=== PATIENT | female | born 1965 | race Hispanic/Latino ===

== ENCOUNTER → 2020-02-02 | Outpatient (CLI) | payer OTHER ==
[~2020-02-02] VITALS: Ht 157.5 cm; Wt 59.9 kg
== END ==
LOC: DX 14:30 → EDSTATUS 02-07 08:00
PROVIDERS: ATTEND Internal Medicine Gastroenterology
DX: Z01.818 Encounter for other preprocedural examination (principal); Z12.11 Encounter for screening for malignant neoplasm of colon; Z11.59 Encounter for screening for other viral diseases
CPT/HCPCS: 93005; U0002

== ENCOUNTER 2020-02-21 20:57 | Emergency (ER) | payer OTHER ==
[~2020-02-21] VITALS: Ht 154.9 cm; Wt 60.8 kg
--- NOTE | 2020-02-21 21:38 | NUR ---
pt states that has instructions that state to remain npo past 1800 today for colonoscpy in am. written instructions reviewed, instructions do not state clear time to remain npo. dr karen andersen called to clarify. pt to remain npo p mn per md. pt informed of md instructions. pt verbalized understanding.
--- NOTE | 2020-02-21 21:39 | Emergency Department Note ---
History of Present Illnes History of Present Illness Chief Complaint: Abdominal Complaints History of Present Illness This is a 55 year old female Chief Complaint Comment 55 y/o female pt [id number] presents to ED with abdominal pain following bowel prep regimen for scheduled colonoscopy tomorrow at this facility by Dr. Charissa Arboleda Historian: Patient Arrival Mode: Car History limited by: language barrier Awning Hanger Helper Required: Yes Onset (how long ago): hour(s) Location: Abdomen Quality: cramping Radiation: Reports non-radiation Severity: moderate Onset quality: gradual Duration (how long): day(s) (1) Timing of current episode: sporadic Progression: worsening Chronicity: new Context: Denies recent illness, Denies recent surgery Relieving factors: none Exacerbating factors: none Associated symptoms: Reports denies other symptoms Treatments prior to arrival: none Past Medical/Family History Physician Review I have reviewed the patient's past medical and family history. Any updates have been documented here. Past Medical History Recent Fever: No Clinical Suspicion of Infectio: No New/Unexplained Change in Ment: No Past Surgical History: Cholecysctectomy, Hysterectomy, Social History Smoking Cessation: Never Smoker Counseling Performed: No Alcohol Use: None Any Illegal Drug Use: No Other Any Pre-Existing Lines (PICC,: No Review of Systems Review of Systems Constitutional: Reports no symptoms EENTM: Reports no symptoms Cardiovascular: Reports no symptoms Respiratory: Reports no symptoms Gastrointestinal: Reports as per HPI Genitourinary: Reports no symptoms Musculoskeletal: Reports no symptoms Integumentary: Reports no symptoms Neurological: Reports no symptoms Psychological: Reports no symptoms Endocrine: Reports no symptoms Hematological/Lymphatic: Reports no symptoms Physical Exam Related Data Allergies: Coded Allergies: No Known Allergies (Unverified , 02/01/20) Triage Vital Signs Vital Signs Date Time Temp Pulse Resp B/P (MAP) Pulse Ox O2 Delivery O2 Flow Rate FiO2 02/21/20 21:18 98.5 83 17 127/82 100 Room Air Vital signs reviewed: Yes Physical Exam CONSTITUTIONAL Constitutional: Present well-developed, Present well-nourished HENT HENT: Present normocephalic, Present atraumatic, Present oropharynx clear/moist, Present nose normal HENT L/R: Present left ext ear normal, Present right ext ear normal EYES Eyes: Reports PERRL, Reports conjunctivae normal NECK Neck: Present ROM normal PULMONARY Pulmonary: Present effort normal, Present breath sounds normal CARDIOVASCULAR Cardiovascular: Present regular rhythm, Present heart sounds normal, Present capillary refill normal, Present normal rate GASTROINTESTINAL Abdominal: Present soft, Present nontender, Present bowel sounds normal GENITOURINARY Genitourinary: Present exam deferred SKIN Skin: Present warm, Present dry MUSCULOSKELETAL Musculoskeletal: Present ROM normal NEUROLOGICAL Neurological: Present alert, Present oriented x 3, Present no gross motor or sensory deficits PSYCHOLOGICAL Psychological: Present mood/affect normal, Present judgement normal Assessment & Plan Medical Decision Making MDM 55 y.o F presents for abdominal cramping after taking a bowel prep. Per reviewing her instructions she appears to be taking he bowel prep incorrectly. Discussed this with Dr. Arboleda and recommendations made. Doubt emergent process at this time. I discussed results patient as well as expected disease time course and management. They will follow up with their primary care provider or return to the emergency department for new or worsening symptoms. Patient's appropriate for discharge. Reassessment Reassessment time: 21:38 Reassessment Well appearing, NAD Assessment & Plan Final Impression: (1) Abdominal cramping Depart Disposition: HOME, SELF-CARE Last Vital Signs Date Time Temp Pulse Resp B/P (MAP) Pulse Ox O2 Delivery O2 Flow Rate FiO2 02/21/20 21:18 98.5 83 17 127/82 100 Room Air Home Meds No Active Prescriptions or Reported Meds ZAACRIAS DAVID MD Feb 21, 2020 21:38
--- OUTSIDE RECORDS SUMMARY | 2020-02-22 19:51 | XMS REPORT | Continuity of Care Document ---
Author Author [facility] t Organization [facility] Address [address] [place] [address] Phone Unavailable Care Team Providers Care [place] Worker Name Role Phone Asked, Pcp No PCP Unavailable Matteo RN, Breann Attphys Unavailable Ced SAMSON, Kyle Moreland Attphys Mehul SAMSON, Renaldo Gama Attphys [phone] Brandon SAMSON, Josef Cadena Attphys [phone] Leonila SAMSON, Ryder Attphys Bhavin SAMSON, Dominick Barrios Attphys NIK CARVER Admphys Unavailable Payers Payer Name Policy Type Policy Number Effective Date Expiration Date Erica CAZARES [employer] [id number] 2019 -PresentExchange [id number] 2019 00:00:00 Felix Sifuentes Problems Condition Name Condition Details Condition Category Status Onset Date Resolution Date Last Treatment Date Treating Clinician Comments Source COVID-19 virus detected COVID-19 virus detected Disease Active 2019-11-19 00:00:[address] Post-traumatic headache Post-traumatic headache Disease Active 2019-11-18 00:00:[address] Type 2 diabetes mellitus without complication Type 2 d iabetes mellitus without complication Disease Active 2019-11-18 00:00:00 Felix Sifuentes Essential hypertension Essential hypertension Disease Active 2019-11-18 00:00:00 Felix vizcaino Syncope Syncope Disease Active 2019-11-17 00:00:00 Felix Sifuentes Allergies, Adverse Reactions, Alerts This patient has no known allergies or adverse reactions. Social History Social Habit Start Date Stop Date Quantity Comments Source Sex Assigned At [facility] Alcohol intake 2019-11-18 00:00:00 2019-11-18 00:00:00 Ex-drinker (fi nding) Felix Sifuentes Smoking Status Start Date Stop Date Source Never smoker Felix Worley t Medications Ordered Medication Name Filled Medication Name Start Date Stop Da te Current Medication? Ordering Clinician Indication Dosage Frequency Signature (SIG) Comments Components Source metFORMIN (GLUCOPHAGE) 500 mg tablet 2019-11-20 19:50:21 Ye s 500mg Q.5D Take 500 mg by mouth 2 (two) times a day with meals. Felix Sifuentes lisinopriL 10 mg tablet 1 tablet, hydroCHLOROthiazide 25 MG tablet 0.5 tablet 2019-11-20 19:50:21 Yes QD Take by mouth yvette Sifuentes ciprofloxacin (CIPRO) 500 MG tablet 2019-09-28 00:00:0 0 2019-10-05 23:59:00 No 500mg Q.5D Take 1 tablet ( 500 mg total) by mouth 2 (two) times a day for 7 days. Felix Sifuentes keTOROlac (TORadol) 10 mg tablet 2019-09-28 00:00:00 2019-09 23:59:00 No 10mg Q6H Take 1 tablet (10 mg total) by mouth every 6 (six) hours as needed for moderate pain for up to 5 days. Felix Sifuentes keTOROlac (TORadol) 10 mg tablet 2019-09-28 00:00:00 2019-09 00:00:00 No 10mg Q6H Take 1 tablet (10 mg total) by mouth every 6 (six) hours as needed for moderate pain for up to 5 days. Felix Sifuentes ciprofloxacin (CIPRO) 500 MG tablet 2019-09-28 00:00:0 0 2019-09-28 00:00:00 No 500mg Q.5D Take 1 tablet ( 500 mg total) by mouth 2 (two) times a day for 7 days. Felix Sifuentes Vital Signs Vital Name Observation Time Observation Value Comments Source Systolic blood pressure 2019-11-20 15:38:19 151 mm[Hg] Felix Sifuentes Diastolic blood pressure 2019-11-20 15:38:19 97 mm[Hg] Felix Sifuentes Heart rate 2019-11-20 15:38:19 87 /min Felix [facility] Body temperature 2019-11-20 15:38:19 36.39 Carmel Mohan ton [facility] Respiratory rate 2019-11-20 15:38:19 19 /min Moahn miranda [facility] Oxygen saturation in Arterial blood by Pulse oximetry 11-19 15:38:19 97 /min [place] [facility] Body height 2019-11-20 13:23:00 157.5 cm [place] [facility] Body weight 2019-11-20 13:23:00 61.8 kg [place] [facility] BMI 2019-11-20 13:23:00 24.92 kg/m2 [place] [facility] Procedures Procedure Date / Time Performed Performing Clinician [facility] e CT ANGIOGRAM PE CHEST 2019-11-20 14:40:13 Christiano Glez [place] [facility] POC GLUCOSE 2019-11-20 12:23:00 Tammi Taylor [facility] TTE COMPLETE, WO CONTRAST, W DOPPLER ([id number]) 2019-11-20 08:4 5:00 Nik Carver [facility] POC GLUCOSE 2019-11-20 08:35:00 Tammi Taylor [facility] CBC WITH PLATELET AND DIFFERENTIAL 2019-11-20 04:36:00 Renata Carver [facility]ism COMPREHENSIVE METABOLIC PANEL 2019-11-20 04:36:00 Nik Carver ESTIMATED GFR 2019-11-20 04:36:00 Nik Carver on [facility]ism POC GLUCOSE 2019-11-19 17:19:00 Nik Carver on [facility]ism POC GLUCOSE 2019-11-19 11:10:00 Nik Carver on [facility] MRI BRAIN WO CONTRAST 2019-11-19 10:58:51 Valentino Green [facility]ism POC GLUCOSE 2019-11-19 08:26:00 Nik Carver on [facility]ism POC GLUCOSE 2019-11-19 05:38:00 Nik Carver on [facility]ism CBC WITH PLATELET AND DIFFERENTIAL 2019-11-19 05:30:00 Renata Carver [facility]ism COMPREHENSIVE METABOLIC PANEL 2019-11-19 05:30:00 Nik Carver [facility] ESTIMATED GFR 2019-11-19 05:30:00 Nik Carver on [facility]ikhism POC GLUCOSE 2019-11-19 00:38:00 Nik Carver on [facility]ism EEG AWAKE/DROWSY LESS THAN 41 MIN 2019-11-18 22:25:07 Nik Carver [facility]ism POC GLUCOSE 2019-11-18 20:52:00 Nik Carver on [facility]ism POC GLUCOSE 2019-11-18 17:29:00 Nik Carver on [facility]ism LIPID PANEL 2019-11-18 15:40:00 Valentino Green [facility] THYROID STIMULATING HORMONE 2019-11-18 15:40:00 Valentino Green [facility] T4, FREE 2019-11-18 15:40:00 Valentino Green [facility]ism T3 2019-11-18 15:40:00 Valentino Green [facility] RACHEL 2019-11-18 15:40:00 Valentino Green [facility] VITAMIN B12 LEVEL 2019-11-18 15:40:00 Valentino Green [facility]ism FOLATE LEVEL 2019-11-18 15:40:00 Valentino Green [facility] SYPHILIS TOTAL ANTIBODY 2019-11-18 15:40:00 Valentino Green [facility] HIV AG/AB COMBINATION 2019-11-18 15:40:[address] [facility] HOMOCYSTINE, PLASMA 2019-11-18 15:40:00 Valentino Green [facility] RHEUMATOID FACTOR 2019-11-18 15:40:00 Valentino Green [facility]ism RACHEL TITER 2019-11-18 15:40:00 Nik Carver on Sikhism ECG 12-LEAD 2019-11-18 12:38:40 Nik Carver on Sikhism POC GLUCOSE 2019-11-18 12:03:00 Nik Carver on [facility]ikhism HC COMPLETE BLD COUNT W/AUTO DIFF 2019-11-18 10:45:00 Nik Carver COMPREHENSIVE METABOLIC PANEL 2019-11-18 10:45:00 Nik Carver Sikhism PROTHROMBIN TIME WITH INR 2019-11-18 10:45:00 Nik Carver [facility]ism PARTIAL THROMBOPLASTIN TIME (PTT) 2019-11-18 10:45:00 Nik Carverist B NATRIURETIC PEPTIDE 2019-11-18 10:45:00 Nik Carver Sikhism TROPONIN 2019-11-18 10:45:00 Nik Carver on Sikhism MYOGLOBIN 2019-11-18 10:45:00 MehulNik mistry on Sikhism PROCALCITONIN 2019-11-18 10:45:00 MehulNik mistry on Sikhism C-REACTIVE PROTEIN 2019-11-18 10:45:00 Nik Carver [facility]ism INTERLEUKIN 6 2019-11-18 10:45:00 Nik Carver on Sikhism FERRITIN LEVEL 2019-11-18 10:45:00 MehulNik mistry on Sikhism D-DIMER 2019-11-18 10:45:00 MehulNik mistry on Sikhism LDH 2019-11-18 10:45:00 MehulNik mistry on S[facility]ism TRIGLYCERIDES 2019-11-18 10:45:00 MehulNik mistry on [facility]ism FIBRINOGEN 2019-11-18 10:45:00 MehulNik mistry on [facility]ism ESTIMATED GFR 2019-11-18 10:45:00 Nik Carver on [facility]ism TYPE AND SCREEN 2019-11-18 10:45:00 MehulNik mistry on [facility]ism POC GLUCOSE 2019-11-18 07:30:00 Nik Carver on [facility]ism LACTIC ACID LEVEL, SEPSIS - NOW AND REPEAT 2X EVERY 3 HOURS 2019-11-18 02:57:00 Jacinta Herbert Sikhism TROPONIN 2019-11-18 02:57:00 Jacinta Herbert on [facility]ism HC COMPLETE BLD COUNT W/AUTO DIFF 2019-11-18 02:57:00 Nik Carver [facility]ism PROTHROMBIN TIME WITH INR 2019-11-18 02:57:00 Nik Carver [facility]ism PARTIAL THROMBOPLASTIN TIME (PTT) 2019-11-18 02:57:00 Nik Carver [facility]ism COMPREHENSIVE METABOLIC PANEL 2019-11-18 02:57:00 Nik Carver gee Felix Sifuentes HEMOGLOBIN A1C 2019-11-18 02:57:00 MehulNik mistry on Sikhism LIPASE LEVEL 2019-11-18 02:57:00 MehulNik mistry on Sikhism MAGNESIUM LEVEL 2019-11-18 02:57:00 MehulNik mistry on Sikhism PHOSPHORUS LEVEL 2019-11-18 02:57:00 MehulNik mistry S[facility]ism ESTIMATED GFR 2019-11-18 02:57:00 Nik Carver on Sikhism TROPONIN 2019-11-18 00:05:00 Jacinta Herbert on [facility]ism URINE CULTURE 2019-11-18 00:00:00 Jacinta Herbert on [facility]ikhism URINE DRUGS OF ABUSE SCREEN 2019-11-18 00:00:00 Jacinta Herbert URINALYSIS SCREEN AND MICROSCOPY, WITH REFLEX TO CULTURE 202 00:00:00 Jacinta Herbert ECG ED PRELIMINARY INTERPRETATION 2019-11-17 23:09:51 Jerome Coughlin LACTIC ACID LEVEL, SEPSIS - NOW AND REPEAT 2X EVERY 3 HOURS 2019-11-17 23:05:00 Jacinta Herbert LIPASE LEVEL 2019-11-17 23:05:[address] [facility] HEAD WO CONTRAST 2019-11-17 22:25:08 Jacinta Herbert COVID-19 QUALITATIVE PCR 2019-11-17 22:20:00 Jacinta Herbert [facility]ism ECG 12-LEAD 2019-11-17 20:55:31 Jacinta Herbert on [facility]ikhism HC COMPLETE BLD COUNT W/AUTO DIFF 2019-11-17 20:55:00 Capo Herbertist COMPREHENSIVE METABOLIC PANEL 2019-11-17 20:55:00 Luke Herbert LACTIC ACID LEVEL, SEPSIS - NOW AND REPEAT 2X EVERY 3 HOURS 2019-11-17 20:55:00 Jacinta Herbert TROPONIN 2019-11-17 20:55:00 Jacinta Herbert on Sikhism B NATRIURETIC PEPTIDE 2019-11-17 20:55:00 Jacinta Herbert CREATINE KINASE, TOTAL (CPK) 2019-11-17 20:55:00 Jacinta Herbert ALCOHOL LEVEL, BLOOD 2019-11-17 20:55:00 Jacinta Herbert PROTHROMBIN TIME WITH INR 2019-11-17 20:55:00 Jacinta Herbert PARTIAL THROMBOPLASTIN TIME (PTT) 2019-11-17 20:55:00 Capo Herbert ESTIMATED GFR 2019-11-17 20:55:00 Jacinta Herbert on Sikhism LIPASE LEVEL 2019-11-17 20:55:00 Jacinta Herbert on Sikhism XR CHEST 1 VW PORTABLE 2019-11-17 19:40:00 Jacinta Herbert ED REFERRAL [facility] 2019 22:20:[address] CHEST WO CONTRAST 2019-11-10 21:27:41 Ryder Keen ECG 12-LEAD 2019-11-10 21:24:58 Ryder Keen hodist HC COMPLETE BLD COUNT W/AUTO DIFF 2019-11-10 20:38:00 Erica Keen PROTHROMBIN TIME WITH INR 2019-11-10 20:38:00 Ryder Keen PARTIAL THROMBOPLASTIN TIME (PTT) 2019-11-10 20:38:00 Erica Keen COMPREHENSIVE METABOLIC PANEL 2019-11-10 20:38:00 Jen Keen TROPONIN 2019-11-10 20:38:00 LeonilaRyder [place] [facility] B NATRIURETIC PEPTIDE 2019-11-10 20:38:00 Ryder Keen on Sikhism ESTIMATED GFR 2019-11-10 20:38:00 LeonilaRyder Met hodist D-DIMER 2019-11-10 20:38:[address] ABDOMEN PELVIS WO CONTRAST 2019-09-28 18:51:53 Tu, Yen-Te Chr istian Felix Sifuentes URINE CULTURE 2019-09-28 17:40:00 Jay Fuchs Me thodist URINALYSIS SCREEN AND MICROSCOPY, WITH REFLEX TO CULTURE 202 17:40:00 Jay Fuchs HC COMPLETE BLD COUNT W/AUTO DIFF 2019-09-28 16:17:00 Ap Fuchs COMPREHENSIVE METABOLIC PANEL 2019-09-28 16:17:00 Jay Fuchs LIPASE LEVEL 2019-09-28 16:17:00 Jay Fuchs [facility] ESTIMATED GFR 2019-09-28 16:17:00 Jay Fuchs [facility] Plan of Care Planned Activity Planned Date Details Comments Source Future Scheduled Test 2019-11-18 00:00:00 INFLUENZA VACCINE [code = INFLUENZA VACCINE] [facility] Future Scheduled Test 2013 00:00:00 BREAST CANCER SCRE ENING [code = BREAST CANCER SCREENING] [facility] Future Scheduled Test 2013 00:00:00 COLONOSCOPY SCREEN ING [code = COLONOSCOPY SCREENING] [facility] Future Scheduled Test 2013 00:00:00 SHINGLES VACCINES (#1) [code = SHINGLES VACCINES (#1)] [facility] Future Scheduled Test 1984-01-05 00:00:00 Screening for robel gnant neoplasm of cervix (procedure) [code = 369328428] Felix Worley Future Scheduled Test 1973 00:00:00 DIABETES: RETINAL EYE EXAM [code = DIABETES: RETINAL EYE EXAM] [facility] Future Scheduled Test 1973 00:00:00 DIABETIC FOOT EXAM [code = DIABETIC FOOT EXAM] [facility] Future Scheduled Test 1973 00:00:00 URINE MICROALBUMIN [code = URINE MICROALBUMIN] Felix Sifuentes Encounters Start Date/Time End Date/Time Encounter Type Admission Type [facility] Care Department Encounter ID Source 2019-11-17 00:00:00 2019-11-20 00:00:00 Inpatient JAZMINE TAYLOR [facility] [id number] Felix Sifuentes 2019-11-10 00:00:00 2019-11-10 00:00:00 Emergency JEN KEEN [facility] [id number] Felix Sifuentes 2019-09-28 00:00:00 2019-09-28 00:00:00 Emergency EVERT BOLDEN [facility] Karla [id number] Felix Sifuentes Results Test Description Test Time Test Comments Results Result Comments Source SCR MAMM BILATERAL CAROLEE CAD DIGITAL 2020-01-10 09:51:15 - SCR MAMM BILATERAL CAROLEE CAD DIGITALBILATERAL DIGITAL SCREENING MAMMOGRAM 3D/2D WITH CAD: 01/09/2020CLINICAL: Asymptomatic. Digital breast tomosynthesis was performed in addition to routine CC and MLO views. Current mammographic images were evaluated by either a [employer] M-Vu or a [employer] ImageChecker CAD (computer aided detection system). Comparison is made to exams dated 10/23/2015 mammogram and mammogram - [facility]. There are scattered fibroglandular tissues in both breasts. No suspicious mass, architectural distortion, malignant type calcification, or lymph node abnormality detected. Breast architecture is stable compared to prior exams.IMPRESSION: NEGATIVEThere is no mammographic evidence of malignancy. Resume annual screening mammography in one year. Aiden Walls M.D. ss/penrad:01/10/2020 09:51:15 Roll Forming Machine Set Up Operator: Bee Mcdowell , [facility] sent: BIRADS 1-2 Normal Mammogram BI-RADS: 1 Negative Procalcitonin 2019-11-21 15:55:52 Test Item Procalcitonin (test code = 07237-5) <0.07 <=0.07 ng/mL INTERPRETIVE INFORMATION: ProcalcitoninProcalcitonin > 2.00 ng/mL: Procalcitonin levels above 2.00 ng/mL on the first day of ICU admission represent a high risk for progression to severe sepsis and/or septic shock.Procalcitonin < 0.50 ng/mL: Procalcitonin levels below 0.50 ng/mL on the first day of ICU admission represent a low risk for progression to severe sepsis and/or septic shock.If t he procalcitonin measurement is performed shortly after the systemic infection process has started (usually less than 6 hours), these values may still be low. As various non-infectious conditions are known to induce procalcitonin as well, procalcitonin levels between 0.5 ng/mL and 2.00 ng/mL should be reviewed carefully to take into account the specific clinical background and condition(s) of the individual patient.Performed By: Bel Vino at [address] [address]Zsledufmrd Director: Shreya Veronica DO, MPHPerformed by Bel [facility]ino, [address] [place] [id number] www.[facility], Antonio Neri MD - Lab. Director [facility]ist[facility] [id number] 13:37:25* Test Item Value Reference Range Interpretation Comments RACHEL titer (test code = 50367-0) 1:80 Not-Detected A RACHEL pattern (test code = 58475-6) Homogeneous Not-Detected A Lab Interpretation (test code = 89456-3) Abnormal [place] [id number] 13:35:12* Test Item Value Reference Range Interpretation Comments RACHEL screen (test code = 550) Positive Negative A Test performed using [employer] Lite DAPI RACHEL kit (Indirect Immunofluorescence Assay) for Anti-Nuclear Antibody on TwonqA-Lyser 160 Analyzer. Lab Interpretation (test code = 95225-6) Abnormal [place] [facility]CT Angiogram Pe [id number] 17:26:03Hm Interface, Radiology Results - 11/20/2019 5:29 PM CDTEXAMINATION: CT ANGIOGRAM PE CHESTCLINICAL HISTORY: PE suspected intermediate prob neg D-dimer, COVID 19.TECHNIQUE: PE PROTOCOL: CT angiographic images of the chest were obtained during intravenous administration of iodinated contrast. Computerized re formatted images and 3-D MIP images were also obtained and archived (CT pulmonar y embolus protocol). CT imaging was performed with iterative reconstruction tech nique and/or automated exposure control to reduce radiation dose.COMPARISON: CT chest 11/10/2019.FINDINGS:Pulmonary arteries: Technically adequate contrast bolus timing for evaluation for pulmonary embolism. No pulmonary embolism. Main pulmo nary artery diameter is normal. No evidence of acute right heart strain.Lungs an d airways: Multifocal groundglass nodules scattered throughout both lungs with a basilar and peripheral preponderance. Appearance is nonspecific but but is comp atible with known Covid 19 pneumonia. Minimal linear opacity lateral aspect left lower lung with associated volume loss, discoid atelectasis versus scar/fibrosi s.. Pleura: No pleural effusion or pneumothorax.Mediastinum and lymph nodes: Pro minent mediastinal lymph nodes measure up to 1.0 cm short axis, likely reactive and unchanged from prior. Cardiovascular: Mild coronary artery and scattered aor tic calcifications. 3.7 cm maximal coronal diameter fusiform ectasia of the aort ic root. Sinotubular junction and mid ascending thoracic aorta are normal in jennifer iber. Anatomic variant common origin brachiocephalic trunk and left common carot id artery. Mild calcified plaque aortic arch. Minimal tortuosity descending thor acic aorta. Upper abdominal vasculature is unremarkable.Upper abdomen: No suspic ious abnormalities. Scattered splenic granuloma. Prior cholecystectomy.Musculosk eletal: No suspicious osseous lesions. Mild degenerative changes of the thoracic spine.IMPRESSION:1.Technically adequate contrast bolus timing for evaluation for pulmonary embolism. No evidence of acute pulmonary embolism. 2.Multifocal grou ndglass nodules with a peripheral and basilar preponderance , compatible with kn own COVID 19 pneumonia.3.3.7 cm maximal coronal diameter fusiform ectasia mid as cending thoracic aorta. Common origin right brachiocephalic and left common hinds tid artery common anatomic variant.[facility]-[id number] and approved by radiol ogy resident/fellow: Ana Tovar, ALETHA DUKE MD, personally reviewed the images and resident's/fellow's findings and agree with the final re port.[facility] Complete, (w Contrast, Strain and 3D if needed)2019-11-20 12:37:00Interface, Radiology Results In - 11/20/2019 12:38 PM CDT Echocardiography Report [address] [address], [place] [address] [facility].Name: ARMIDA RICARDO Pat.ID: [id number] .Date: 11/19/2019 Refer.MD: NIK CARVER MDExam Time: 7:32:00 PM Study Type:Routine Echo Height: 62in Weight: 137lb BSA: 1.63 m2 Age: 9 1965,54Y Sex: FEMALE BP: 143/87 HR: 73 bpm Sonogrphr: Tori Higgins RDCS Pat. Stat.:Inpatient Room: [facility] Study Status:Final Echo Event ID:[id number] Order ID: [id number] Reason for Study:Lightheadedness/Presyncope/Syncope-Signs consistentwith a cardiac dx known to cause lightheadedness/presyncope/syncopeincluding but not limited to aortic stenosis, hypertrophiccardiomyopathy, or HFProcedures: 2D Echo, Colorflow Doppler, Portable, Strain ------SUMMARY: LV EF is normal. Estimated EF is 60-64%.RV systolic function is normal.LV relaxation is normal. LV filling pre ssure is normal.Estimated PA systolic pressure is 28 mmHg, assuming a mean RAP o f 5mmHg. FINDINGS: ---------LV: LV size is normal. LV EF is normal. Overall wall motion is normal. Estimated EF is 60-64%.RV: RV size is normal. RV systolic f unction is normal.LA: LA size is normal.RA: RA size is normal.AO: Aortic root diameter is normal.JAYME: No pericardial effusion.AV: No structural AV abnormalities noted.MV: No structural MV abnormalities not ed. Mild mitral regurgitation. PV: No structural PV abnormalities noted.TV: No structural TV abnormalities noted. Mild tricuspid r egurgitation [place]: LV relaxation is normal. LV filling pressure is normal.Ot her: Estimated PA systolic pressure is 28 mmHg, assuming a mean RAP of 5 mmHg. MEASUREMENTS: 2DParasternal [place] Ao Rtd 3.2 cm Index 2 cm/m2 LA Ds 3.6 cm IVSd 0.78 cm RWT 0.26 LVIDd 4.6 cm Index 2.9 cm/m2 LV Mass 99 g (87-129) LVIDs 3.9 cm LVM Index 61 g/m2 LV%fs 15 % LVOT 2.1 cm LVPWd 0.59 cm LA Sng Plane LA Area 11 cm2 (8.8-23.4) LA Vol 27 ml Index 17 ml/m2 LA LngAx 3.9 cm RA Sng Plane RA Vol 32 ml Index 19 ml/m2 RA LngAx 5.1 cm RA Area 14 cm2 (8.3-19.5)LVOT LVOT Area 3.4 cm2 DOPPLERLVOT For Flow LVOT TVI 20 cm LVOTmnPG 2 mmHg LVOTpkVel 95 cm/s HR 71 bpm LVOTpkPG 3.6 mmHg LVOT LVOT SV 67 ml LVOT CO 4.8 l/min SVi 41 ml/m2 LVOT CI 2.9 l/m/m2 Signed 11/20/2019 12:37 Tootie Shirley [facility] [id number] 12:24:37* Test Item Value Reference Range Interpretation Comments POC glucose (test code = 39798-4) 109 mg/dL 65-99 H [employer] Name: Yong VargasClay ID: [id number]: [facility] Notified screener perfumer Interpretation (test code = 80534-1) [facility] [id number] 07:15:59* Test Item Value Reference Range Interpretation Comments Sodium (test code = 2951-2) 140 135- 148 mEq/L Potassium (test code = 2823-3) 4.0 3.5- 5.0 mEq/L Chloride (test code = 5-0) 104 98- 112 mEq/L CO2 (test code = 2027-9) 24 24- 31 mEq/L Anion gap (test code = 89245-8) 12@ANIO 7- 15 mEq/L BUN (test code = 3094-0) 7 mg/dL 6-20 Creatinine (test code = 2160-0) 0.47 mg/dL 0.5-0.9 L Glucose (test code = 2345-7) 105 mg/dL 65-99 H Calcium (test code = 63955-4) 9.6 mg/dL 8.3-10.2 Protein (test code = 2885-2) 7.1 g/dL 6.3-8.3 - 4.6- 7.0 g/dL1 week 4.4-7.6 g/dL7 months-1year 5.1-7.3 g/dL1-2 years 5.6-7.5 g/dL>3 years 6.0-8.0 g/dP24-071 6.3-8.3 g/dL Albumin (test code = 1751-7) 3.4 g/dL 3.5-5 L A/G ratio (test code = 1759-0) 0.9 0.7-3.8 Alkaline phosphatase (test code = 6768-6) 68 U/L 35-104 AST (test code = 1920-8) 22 U/L 10-35 ALT (test code = 1742-6) 35 U/L 5-50 Total bilirubin (test code = 1974-) 0.3 mg/dL 0-1.2 Lab Interpretation (test code = 17407-3) Abnormal [place] MethodistEstimated [id number] 07:15:58* Test Item Value Reference Range Interpretation Comments Estimated GFR (test code = 5488) >=90 mL/min/1.73 m2 Catergory Units InterpretationG1 >=90 Normal or highG2 60-89 Mildly gzbedegamV7d 45-59 Mildly to moderately jelixtxhvI9p 30-44 Moderately to severely decreasedG4 15-29 Severely decreasedG5 <15 Kidney failureThe eGFR was calculated using the Chronic Kidney Disease Epidemiology Collaboration (CKD-EPI) equation. Interpretation is based on recommendations of the National Kidney Foundation-Kidney Disease Outcomes Quality Initiative (NKF-KDOQI) published in 2014. [place] [facility] with [facility] and kqfbmkjfeoot8482-11-87 06:51:39* Test Item Value Reference Range Interpretation Comments WBC (test code = 38893-3) 5.14 4.50- 11.00 k/uL RBC (test code = 24964-2) 3.85 m/uL 4.2-5.5 L HGB (test code = 718-7) 11.5 g/dL 12-16 L HCT (test code = 4544-3) 33.7 % 37-47 L MCV (test code = 787-2) 87.5 fL 82-100 MCH (test code = 785-6) 29.9 pg 27-34 MCHC (test code = 786-4) 34.1 g/dL 31-37 RDW - SD (test code = 10359-9) 39.6 fL 37-55 MPV (test code = 57086-0) 11.7 fL 8.8-13.2 Platelet count (test code = 43224-6) 213 150- 400 k/uL Nucleated RBC (test code = 05878-1) 0.00 /100 WBC Neutrophils (test code = 12090-5) 46.7 % 39-69 Lymphocytes (test code = 14109-6) 40.3 % 25-45 Monocytes (test code = 89865-9) 10.1 % 0-10 H Eosinophils (test code = 68306-1) 2.1 % 0-5 Basophils (test code = 59113-4) 0.6 % 0-1 Immature granulocytes (test code = 74998-1) 0.2 % 0-1 "Immature granulocytes" (promyelocytes, myelocytes, metamyelocytes) Lab Interpretation (test code = 27658-4) Abnormal [facility] Brain Wo [id number] 11:06:07Hm Interface, Radiology Results 11/19/2019 11:09 AM CDTStudy:MRI BRAIN WO CONTRASTHistory:Focal neuro deficit < 6 hrs stroke suspectedCOMPARISON:CT brain yesterdayTECHNIQUE: Multiplanar multisequence MR images of the brain without IV contrast.FINDINGS:Parenchymal volume is normal. No white matter signal abnormality. There is no acute infarct, hemorrhage, midline shift, hydrocephalus, extra-axial collections, or edema. The orbits are unremarkable. The visualized paranasal sinuses and mastoid air cells are without significant fluid signal. The calvarium is unremarkable.IMPRESSION:No acute abnormality.[facility] [id number] MethodistSyphilis total [id number] 10:28:33* Test Item Value Reference Range Interpretation Comments Syphilis total antibody (test code = 6194) Non-reactive Non-reactiv e No serological evidence of syphilis infection. [place] MethodistECG 12 [id number] 09:03:36* Test Item Value Reference Range Interpretation Comments Ventricular rate (test code = 253) 80 Atrial rate (test code = 255) 80 ID interval (test code = 266) 128 QRSD interval (test code = 260) 84 QT interval (test code = 264) 360 QTC interval (test code = 265) 415 P axis 1 (test code = 267) 39 QRS axis 1 (test code = 268) 53 T wave axis (test code = 270) 41 EKG impression (test code = 273) Normal sinus rhythm-T wave abnormality, consider anterior ischemia-Abnormal ECG-In automated comparison with ECG of 17-NOV-2019 20:55,-No significant change was found- [place] [facility] (routine)2019-11-19 08:27:09 This is a normal awake and drowsy Video-EEG study. There are no epileptiform discharges or seizures captured. Melony Yao MD ICD-10 Code: R569 VIDEO-EEG RECORDING AWAKE & DROWSY. Date of Service:11/19/19 Patient Name: Armida Ricardo of : 1965 Attending MD: Melony Yao MD TECHNIQUE: Recordings were obtained using a standard international 10-20 electrode placement supplemented with a single electrocardiogram chest electrode. The recordings were obtained using a reference electrode and reformatted digitally into sequential bipolar an d referential montages for review. OBJECT OF RECORDIN y.o. year old female with COVID19, AMS, referred for video-EEG to evaluate for seizures. FINDINGS: B ackground: The waking background at rest is continuous, composed of an admixture of largely alpha and beta frequencies, with the expected anterior to posterior voltage and frequency gradient with intermixed faster frequencies anteriorly and a symmetric and well-formed posterior dominant alpha rhythm of 10 hertz, that is reactive to eye opening. With drowsiness, there is the expected attenuation of the posterior dominant rhythm. Sleep is not captured. Hyperventilation: was not performedPhotic stimulation: was performed with no evidence of photic driving Interictal: There are no epileptiform discharges or seizures captured. [place] PhasmgtalQ08084-95-86 18:02:20* Test Item Value Reference Range Interpretation Comments T3 (test code = 3053-6) 110 ng/dL 80-200 [facility]HIV Ag/Ab rkspqslgwju4583-72-98 17:25:26* Test Item Value Reference Range Interpretation Comments HIV Ag/Ab combination (test code = 5299) Non-reactive Non-reactive [place] [facility] facilityVitamin B12 sjbqb4806-97-14 17:01:26* Test Item Value Reference Range Interpretation Comments Vitamin B12 (test code = 2132-9) 678 pg/mL 211-946 Significant overlap exists between normal and deficiency states.However, most patients with deficiencies will have Serum B12 <200 pg/mL. [place] MethodistFolate istfr6723-01-72 17:01:25* Test Item Value Reference Range Interpretation Comments Folate (test code = 2284-8) 12.2 ng/mL 4.8-24.2 [place] MethodistT4, elug6401-01-80 16:54:02* Test Item Value Reference Range Interpretation Comments T4, free (test code = 3024-7) 1.3 ng/dL 0.9-1.7 [facility]Thy[facility] stimulating gwpmtdg7178-18-96 16:54:01* Test Item Value Reference Range Interpretation Comments TSH (test code = 3016-3) 0.98 0.27- 4.20 uIU/mL [facility] CenterLipid kjjak1199-41-55 16:46:37* Test Item Value Reference Range Interpretation Comments Cholesterol (test code = 3-3) 125 mg/dL <200 Triglycerides (test code = 2571-8) 88 mg/dL <150 HDL cholesterol (test code = 2085-9) 44 mg/dL >40 LDL cholesterol (test code = 9-1) 79 mg/dL <100 Result obtained by direct LDL measurement Lipid panel interpretation (test code = 52816-9) SeeBelow Total Cholesterol (mg/dL) <200 Desirable 200-239 Borderline-high >=240 High Triglycerides (mg/dL) <150 Normal 150-199 Borderline-high 200-499 High >=500 Very high HDL Cholesterol (mg/dL) <40 Low (male) <40 Low (female) LDL Cholesterol (mg/dL) <100 Optimal 100-129 Near or above optimal 130-159 Borderline-high 160-189 High >=190 Very high Risk Catergories that modify LDL goals.Risk Catergories LDL goal (mg/dL)CHD and CHD risk equivalent <100 (10-year risk >20%)Multiple (2+) risk factors <130 (10-year risk =<20%)0-1 risk factors <160 (<10-year risk) Defining levels of lipids in metabolic syndromeTriglycerides >=150 mg/dLHDL Cholesterol Men <40 mg/dL Women <40 mg/dL Non-HDL cholesterol is a second target for therapy in personswith high triglycerides (>=200 mg/dL) [place] LucitaistRheumatoid vmxajy7015-63-45 16:42:24* Test Item Value Reference Range Interpretation Comments Rheumatoid factor (test code = 36490-1) <10 0- 13 IU/mL [facility] HospitalcarmeloHomocystine, shzpzd4387-50-56 16:42:23* Test Item Value Reference Range Interpretation Comments Homocysteine (test code = 65673-0) 5.7 umol/L 0-15 The risk for coronary vascular disease increases progressively with homocysteine concentration. A 3.4 times greater risk is associated with a homocysteine concentration of greater than 15.8 umol/L as compared to a concentration below 14.1 umol/L. [place] LucitaistInterleukin 14:52:56* Test Item Value Reference Range Interpretation Comments Interleukin 6 (test code = 62503-6) <5 0-5 This test was developed and its performance characteristics determined by the Department of Pathology and Genomic Medicine, [facility]. Interleukin 6 is tested by [facility] by one-step immunoenzymatic assay. It has not been cleared or approved by FDA. The laboratory is regulated under CLIA as qualified to perform high-complexity testing. This test is used for clinical purposes. It should not be regarded as investigational or for research. [place] Lucitacrownpoint health care facilityB natriuretic hjrhpks6302-64-94 13:34:52* Test Item Value Reference Range Interpretation Comments BNP (test code = 06152-3) <3 0-100 [place] MethodistType and hwnofq0122-84-76 12:08:00* Test Item Value Reference Range Interpretation Comments ABO grouping (test code = 883-9) O Rh type (test code = 50590-2) POS Antibody screen (gel) (test code = 890-4) NEG [place] BfquyywreUbreklylf2549-37-07 11:50:59* Test Item Value Reference Range Interpretation Comments Myoglobin (test code = 2639-3) <21 21-72 A Lab Interpretation (test code = 59447-7) Abnormal [place] MethodistFerritin zntfz1853-13-72 11:50:58* Test Item Value Reference Range Interpretation Comments Ferritin level (test code = 2276-4) 372 ng/mL 13-150 H Lab Interpretation (test code = 41043-3) Abnormal [place] XffxigfdtHAZ0047-56-25 11:48:50* Test Item Value Reference Range Interpretation Comments LDH (test code = 00597-8) 122 U/L 87-225 [facility] HospitalistC-reactive vxhxmdq0569-56-49 11:48:50* Test Item Value Reference Range Interpretation Comments CRP (test code = 1988-5) <0.30 0-0.5 [facility] HospitalYothxzpbrCjsollopvdixq6080-68-04 11:48:49* Test Item Value Reference Range Interpretation Comments Triglycerides (test code = 2571-8) 76 mg/dL <150 [facility] HospitalSgkabtkfwZtvgqidm9912-11-90 11:42:37* Test Item Value Reference Range Interpretation Comments Troponin (test code = 87128-1) <0.006 0-0.04 In patients suspected of having a myocardial infarction, along with all other appropriate clinical measures and actions including ECG and other diagnostics as appropriate, measure Ultra TnI at 0 hrs and at 3 hrs.Myocardial infarction VERY LIKELYThe 0 hr TnI level is > 0.10 ng/mL Jose Manuel cardial infarction LIKELYThe 0 hr TnI level is > 0.04 ng/mL and 3 hr level is increased or decreased by at least 0.020 ng/mL Myocardi al infarction VERY UNLIKELYBoth the 0 hr and 3 hr TnI levels <= 0.04 ng/mL(within normal limits) OR 0 hr is > 0.04 ng/mL and 3 hr is increased OR decreased by less than 0.020 ng/mL [place] BfecjfhxoDwrillizxf2363-86-75 11:37:18* Test Item Value Reference Range Interpretation Comments Fibrinogen (test code = 76814-2) 342 mg/dL 200-450 [place] GvkkyeyvnB-rsmmb4167-00-01 11:27:13* Test Item Value Reference Range Interpretation Comments D-dimer (test code = 85713-0) <0.27 0.00- 0.40 ug/mL FEU Units are ug/ml Fibrinogen Equivalent Unit.When combined with low clinical probability, D-dimer results of less than 0.5 ug/ml FEU have a good negative predictive value in excluding PE or DVT. For D-dimer results greater than 0.5 ug/ml FEU further testing is indicated if PE or DVT is suspected clinically.Elevated D-dimer results have been reported in DVT, PE, and DIC cases and may indicate the pre sence of a clot. D-dimer results may be elevated due to old age, , inflammatory diseases, trauma, post-operative states, sepsis, and malignancies. [place] MethodistPartial thromboplastin time, ndmurtqot1936-72-03 11:24:16* Test Item Value Reference Range Interpretation Comments PTT (test code = 21094-6) 27.3 23.0- 36.0 sec PTT therapeutic range for unfractionated heparin is61.0-112.0 seconds which corresponds to Anti-Xa0.3-0.7 U/ml. [place] MethodistProthrombin time with AGK7708-72-16 11:23:41* Test Item Value Reference Range Interpretation Comments Prothrombin time (test code = 5902-2) 14.2 11.5- 14.5 sec INR (test code = 35524-3) 1.1 Th e International Normalized Ratio (INR) is a therapeutic monitoring tool for patients who are stable on oral anticoagulant therapy. An INR of 2.0-3.0 is suggested for deep vein thrombosis/pulmonary embolism. [place] MethodistHemoglobin [id number] 10:55:04* Test Item Value Reference Range Interpretation Comments Hemoglobin A1C (test code = 56708-2) 6.7 % 4-5.6 H HbA1c cutoffs for diagnosing diabetes:4.0% - 5.6% = normal5.7% - 6.4% = increased risk for diabetes (prediabetes)9>=6.5% = iogbiisq9Fgzgi for glycemic control (ADA 2016)< 7.0% Target for non adults with diabetes. More or less stringent targets may be appropriate for individual patients. <7.5% Target for Children and adolescents with type 1 diabetes. Lab Interpretation (test code = 66678-1) Abnormal [place] MethodistCOVID-19 qualitative [id number] 05:47:15* Test Item Value Reference Range Interpretation Comments Interpretation (test code = 8791185) Positive results are indicative of active infection with 2019-nCoV but do not rule out bacterial infection or coinfection with other viruses. The agent detected may not be the definite cause of disease. COVID-19 qualitative PCR result (test code = 57247-7) Detected Not-Detected A COVID-19 qualitative PCR (test code = 7070) See link below for P DF Lab Report Lab Interpretation (test code = 57240-9) Abnormal [place] MethodistLipase sclqt0492-76-67 03:37:38* Test Item Value Reference Range Interpretation Comments Lipase (test code = 3040-3) 15 U/L 13-60 [place] MethodistMagnesium tdudl8389-24-25 03:37:38* Test Item Value Reference Range Interpretation Comments Magnesium (test code = 78100-0) 1.7 mg/dL 1.6-2.6 [place] MethodistPhosphorus uzlpx6335-49-23 03:37:35* Test Item Value Reference Range Interpretation Comments Phosphorus (test code = 2777-1) 3.8 mg/dL 2.4-4.5 [place] MethodistLactic acid level, SEPSIS - Now and repeat 2x every 3 hours 2019-11-18 03:33:45* Test Item Value Reference Range Interpretation Comments Lactic acid (test code = 27131-4) 1.4 mmol/L 0.5-2.2 [place] MethodistUrine drugs of abuse toroor4656-82-23 00:56:23* Test Item Value Reference Range Interpretation Comments Amphetamine screen, urine (test code = 3349-8) Negative Barbiturate screen, urine (test code = 3377-9) Negative Benzodiazepine screen, urine (test code = 3390-2) Negative Cocaine screen, urine (test code = 3397-7) Negative Methadone metabolite (EDDP), urine (test code = 60687-2) Negative Opiates screen, urine (test code = 3879-4) Negative Oxycodone screen, urine (test code = 50032-8) Negative Phencyclidine screen, urine (test code = 3936-2) Negative Tricyclic screen, urine (test code = 66723-1) Negative Cannabinoid screen, urine (test code = 3427-2) Negative Drug screen minimum concentration of detectabilityAmphetamines 1000 ng/mLBarbiturates 200 ng/mLBenzodiazepines 300 ng/mLCocaine 300 ng/mLMethadone 300 ng/mLOpiates 300 ng/mLOxycodone 300 ng/mLPhencyclidine 25 ng/mLCannabinoids 50 ng/mLTricyclics 1000 ng/mLResults are from screening tests and should only be used for medical evaluation. Drug testing for legal purposes requires definitive (or confirmatory) testing methods, which are available upon request. Contact the laboratory if definitive testing is required. [place] MethodistUrinalysis screen and microscopy, with reflex to culture 2019-11-18 00:39:23* Test Item Value Reference Range Interpretation Comments Specimen site (test code = 6225772) Clean catch Color, UA (test code = 5778-6) Straw Appearance, UA (test code = 5767-9) Clear Specific gravity, UA (test code = 5811-5) 1.005 1.001-1.035 pH, UA (test code = 5803-2) 7.0 5.0-8.5 Protein, UA (test code = 15458-0) Negative Negative Glucose, UA (test code = 91007-9) Negative Negative Ketones, UA (test code = 2514-8) Negative Negative Bilirubin, UA (test code = 5770-3) Negative Negative Blood, UA (test code = 5794-3) Negative Negative Nitrite, UA (test code = 5802-4) Negative Negative Urobilinogen, UA (test code = 75824-2) <2.0 <2.0 Leukocyte esterase, UA (test code = 5799-2) Negative Negative Epithelial cells, UA (test code = 5787-7) 1 /HPF WBC, UA (test code = 5821-4) <1 0- 4 /HPF RBC, UA (test code = 99990-5) <1 0- 5 /HPF Bacteria, UA (test code = 25032-7) None seen None seen Yeast, UA (test code = 89344-9) None seen Yeast with pseudohyphae, UA (test code = 54443-4) None seen [place] [facility] nqffinh2886-29-31 00:34:44* Test Item Value Reference Range Interpretation Comments Urine culture (test code = 0804187) SEE COMMENT Bacteriuria screen negative. [place] [facility] [place] [facility] Preliminary Interpretation - Not an Inbjp4137-01-75 23:09:51BrAniceto amin MD 12/17/2019 8:57 [facility] ED Preliminary Interpretation - Not an OrderPerformed by: Aniceto Coughlin MDAuthorized by: Aniceto Coughlin MD ECG reviewed by ED Physician in the absence of a clinical psychiatrist: yes Interpretation: Interpretation: normal Rate: ECG rate: 86 ECG rate assessment: normal Rhythm: Rhythm: sinus rhythm QRS: QRS axis: Normal QRS intervals: NormalST segments: ST segments: NormalHouston MethodistCT Head Wo Rspuyrra4948-08-58 22:28:26Hm Interface, Radiology Results 11/17/2019 10:31 PM CDTExamination: CT HEAD WO CONTRASTClinical History: headachesComparison: None.CT scan of the brain was performed without intravenous contrast.CT scans are performed using radiation dose reduction techniques. Technical factors are evaluated and adjusted to ensure appropriate moderation of exposure. Automated dose management technology is applied to adjust radiation exposure while achieving a diagnostic quality image. CT imaging was performed with iterative reconstruction techniques and/or automated exposure control to reduce radiation dose.No mass effect or midline shift is seen.The ventricles are normal in size.No intracranial hemorrhage is seen.The visualized bony structures shows no acute abnormality.Oshea-white junctions are preserved.IMPRESSION: 1. No acute or focal intracranial abnormality identif ied.[facility]-[id number] MethodistAlcohol level, dnufh3280-04-78 21:36:33* Test Item Value Reference Range Interpretation Comments Alcohol percent (test code = 5643-2) None Detected % Normal None DetectedLegal Intoxication in [place] 80 mg/dL (0.08%) - Whole BloodToxic Concentration 200 mg/dL (0.2%)Potentially Fatal 350 - 500 mg/dL (0.35 - 0.5%) [place] MethodistCreatine kinase, total (CPK)2019-11-17 21:36:33* Test Item Value Reference Range Interpretation Comments Creatine kinase (test code = 2157-6) 26 U/L 26-192 [place] MethodistXR Chest 1 Vw Alrmhhdg8532-53-95 20:21:52Hm Interface, Radiology Results 11/17/2019 8:25 PM CDTXR CHEST 1 VW PORTABLECLINICAL INDICATION: SOBCOMPARISON: None available.IMPRESSION:The lung s are clear without acute cardiopulmonary disease. Heart and mediastinal contour s are within normal limits. Bones are intact with mild curvature to the right.*H MRM-WPHYMDLHouclover hill hospital MethodistCT Chest Wo Hzhjbpkm9608-01-50 21:35:10Hm Interface, Radiology Results 11/10/2019 9:38 PM CDTCT CHEST WO CONTRASTCLINICAL INDICATION: Shortness of breathTECHNIQUE: Multidetector CT imaging of the chest was performed without intravenous contrast with multiplanar reconstructions. CT imaging was performed with iterative reconstruction technique and/or automated exposure control to reduce radiation dose.COMPARISON: None IMPRESSION:The lack of intravenous contrast partially limits evaluation.Lungs and large airways: Mild bibasilar atelectasis. No consolidations, effusions, or pneumothorax. Trachea and mainstem bronchi are patent.Heart and pericardium: Heart size is normal. Trace pericardial effusion. Some mild coronary artery calcifications are identified.Mediastinum and mindy: No mass or hematoma. Lymph nodes: No p athological adenopathy in the mindy, axilla or mediastinum.Vasculature: Mild ath erosclerotic vascular calcifications are identified. Common origin is seen of le ft common carotid artery and right brachiocephalic artery.Upper abdomen: Patien t is status post cholecystectomy. Calcified granulomata are seen of the spleen. Diverticulosis is seen of the large bowel.Bones: No acute osseous abnormality. Mild degenerative change of the thoracic spine.Soft tissues: Unremarkable.Summa ry:No emergent findings.[facility]-SS82GPGEIdmqard MethodistCT Abdomen Pelvis Wo Fzwfuhxx1333-84-01 19:02:22Hm Interface, Radiology Results 09/28/2019 7:05 PM CDTEXAMINATION: CT ABDOMEN PELVIS WO CONTRASTCLINICAL HISTORY: 54 years Female Abd pain unspecified, LLQ pain r o diverticulitisTECHNIQUE: Multiple axial images of the abdomen and pelvis were obtained without intravenous administration of iodinated contrast. Sagittal and coronal computerized reformatted images were also obtained. CT imaging was performed with iterative reconstruction techniques and/or automated exposure control to reduce radiation dose. The lack of intravenous contrast reduces the sensitivity of detecting solid organ disease. COMPARISON: None.IMPRESSION:Lung bases: The lung bases are free of acute disease.Liver: The liver is normal. No focal mass.Gallbladder/Biliary: Gallbladder is surgically absent. There is no biliary duct dilation.Spleen: Spleen is normal in size with calcified granu khloe.Pancreas: Pancreas is unremarkable.Adrenal Glands: The adrenal glands are u nremarkable.Kidneys: There are no renal/ureteral calculi or hydronephrosis.Vascu lar: There is scattered aortic atherosclerotic calcification without aneurysm.No karyna: There is increased number of small mesenteric nodes in the left abdomen sandra suring up to 9 mm in short axis with surrounding mesenteric stranding. 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 There is no retroperitoneal lymphadenopathy.[place] el: No evidence of intestinal obstruction or inflammation. Appendix is not seen. There is no pericolonic inflammation. Diverticulum noted in the proximal sigmoid colon. Ascites/fluid collections: No ascites or fluid collections.Genitourinary: There has been hysterectomy. Bladder is unremarkable.Bones/soft tissues: Visu alized osseous structures are intact. 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 [facility]
--- OUTSIDE RECORDS SUMMARY | 2020-02-22 19:51 | XMS REPORT | Clinical Summary ---
Author Author [facility] Organization [facility] Address Unknown Phone Unavailable Care Team Providers Care Home Appliance Tech Name Role Phone Asked, No Pcp PCP Unavailable Allergies No Known Active Allergies Medications End Date Status Medication Sig Dispensed Refills Start Date Active metFORMIN (GLUCOPHAGE) Take 500 mg 0 500 mg tablet by mouth 2 (two) times a day with meals. Active lisinopriL 10 mg tablet 1 Take by mouth 0 tablet, daily. hydroCHLOROthiazide 25 MG tablet 0.5 tablet 09/28/2019 Discontinued (Reorder) keTOROlac (TORadol) 10 mg Take 1 tablet 20 tablet 0 tablet (10 mg total) 0 by mouth every 6 (six) hours as needed for moderate pain for up to 5 days. 09/28/2019 Discontinued (Reorder) ciprofloxacin (CIPRO) 500 Take 1 tablet 14 tablet 0 MG tablet (500 mg 0 total) by mouth 2 (two) times a day for 7 days. 10/05/2019 ciprofloxacin (CIPRO) 500 Take 1 tablet 14 tablet 0 MG tablet (500 mg 0 total) by mouth 2 (two) times a day for 7 days. 10/03/2019 keTOROlac (TORadol) 10 mg Take 1 tablet 20 tablet 0 tablet (10 mg total) 0 by mouth every 6 (six) hours as needed for moderate pain for up to 5 days. Active Problems Problem Noted Date COVID-19 virus detected 11/19/2019 Post-traumatic headache 11/18/2019 Type 2 diabetes mellitus without complication 2019 Essential hypertension 11/18/2019 Syncope 11/17/2019 Encounters Care Team Description Date Type Specialty Breann Felipe RN 11/21/2019 Patient Quality Outreach Breann Felipe RN 11/21/2019 Patient Quality Outreach Aniceto Coughlin MD Neal, MD Brandon Miles, Tammi Bahena MD Syncope, unspecified syncope type (Prima ry Dx); Hypokalemia; Controlled type 2 diabetes mellitus with other specified complication, without long-term current use of insulin (HCC); Chronic hypertension; Acute intractable tension-type headache; General weakness; Dehydration; Pneumonia due to COVID-19 virus 11/17/2019 Hospital Nephrology - Encounter 11/20/2019 Ryder Keen MD COVID-19 virus infection (Primary Dx); Myalgia 11/10/2019 Emergency Emergency Medicine 09/29/2019 Travel Denis Delcid MD Abdominal pain, unspecified abdominal lo cation (Primary Dx) 09/28/2019 Emergency Emergency Medicine after 02/20/2019 Medical History Medical History Date Comments Pancreatitis Hypertension Diabetes mellitus (HCC) Social History Date Tobacco Use Types Packs/Day Years Used Never Smoker Drinks/Week oz/Week Comments Alcohol Use Not Currently Sex Assigned at Date Recorded Not on file Last Filed Vital Signs Reading Time Taken Comments Vital Sign 151/97 11/20/2019 3:38 PM CDT Blood Pressure 87 11/20/2019 3:38 PM CDT Pulse 36.4 C (97.5 F) 11/20/2019 3:38 PM CDT Temperature 19 11/20/2019 3:38 PM CDT Respiratory Rate 97% 11/20/2019 3:38 PM CDT Oxygen Saturation - - Inhaled Oxygen Concentration 61.8 kg (136 lb 3.9 oz) 11/20/2019 1:23 PM CDT Weight 157.5 cm (5' 2") 11/20/2019 1:23 PM CDT Height 24.92 11/20/2019 1:23 PM CDT Body Mass Index Plan of Treatment Health Maintenance Due Date Last Done Comments DIABETES: RETINAL EYE 1973 EXAM DIABETIC FOOT EXAM 1973 URINE MICROALBUMIN 1973 CERVICAL CANCER SCREENING 01/05/1984 BREAST CANCER SCREENING 2013 COLONOSCOPY SCREENING 2013 SHINGLES VACCINES (#1) 2013 INFLUENZA VACCINE 11/18/2019 Procedures Comments Procedure Name Priority Date/Time Associated Diag nosis CT ANGIOGRAM PE CHEST Routine 11/20/2019 2:40 PM CDT POC GLUCOSE Routine 11/20/2019 12:23 PM CDT TTE COMPLETE, WO Routine 11/20/2019 CONTRAST, W DOPPLER 8:45 AM CDT (21443) POC GLUCOSE Routine 11/20/2019 8:35 AM CDT ESTIMATED GFR Routine 11/20/2019 4:36 AM CDT COMPREHENSIVE METABOLIC Routine 11/20/2019 PANEL 4:36 AM CDT CBC WITH PLATELET AND Routine 11/20/2019 DIFFERENTIAL 4:36 AM CDT POC GLUCOSE Routine 11/19/2019 5:19 PM CDT POC GLUCOSE Routine 11/19/2019 11:10 AM CDT MRI BRAIN WO CONTRAST Routine 11/19/2019 10:58 AM CDT POC GLUCOSE Routine 11/19/2019 8:26 AM CDT POC GLUCOSE Routine 11/19/2019 5:38 AM CDT ESTIMATED GFR Routine 11/19/2019 5:30 AM CDT COMPREHENSIVE METABOLIC Routine 11/19/2019 PANEL 5:30 AM CDT CBC WITH PLATELET AND Routine 11/19/2019 DIFFERENTIAL 5:30 AM CDT POC GLUCOSE Routine 11/19/2019 12:38 AM CDT EEG AWAKE/DROWSY LESS Routine 11/18/2019 THAN 41 MIN 10:25 PM CDT POC GLUCOSE Routine 11/18/2019 8:52 PM CDT POC GLUCOSE Routine 11/18/2019 5:29 PM CDT RACHEL TITER Routine 11/18/2019 3:40 PM CDT RHEUMATOID FACTOR Routine 11/18/2019 3:40 PM CDT HOMOCYSTINE, PLASMA Routine 11/18/2019 3:40 PM CDT HIV AG/AB COMBINATION Routine 11/18/2019 3:40 PM CDT SYPHILIS TOTAL ANTIBODY Routine 11/18/2019 3:40 PM CDT FOLATE LEVEL Routine 11/18/2019 3:40 PM CDT VITAMIN B12 LEVEL Routine 11/18/2019 3:40 PM CDT RACHEL Routine 11/18/2019 3:40 PM CDT T3 Routine 11/18/2019 3:40 PM CDT T4, FREE Routine 11/18/2019 3:40 PM CDT THYROID STIMULATING Routine 11/18/2019 HORMONE 3:40 PM CDT LIPID PANEL Routine 11/18/2019 3:40 PM CDT ECG 12-LEAD STAT 11/18/2019 12:38 PM CDT POC GLUCOSE Routine 11/18/2019 12:03 PM CDT TYPE AND SCREEN Routine 11/18/2019 10:45 AM CDT ESTIMATED GFR STAT 11/18/2019 10:45 AM CDT FIBRINOGEN STAT 11/18/2019 10:45 AM CDT TRIGLYCERIDES STAT 11/18/2019 10:45 AM CDT LDH STAT 11/18/2019 10:45 AM CDT D-DIMER STAT 11/18/2019 10:45 AM CDT FERRITIN LEVEL STAT 11/18/2019 10:45 AM CDT INTERLEUKIN 6 STAT 11/18/2019 10:45 AM CDT C-REACTIVE PROTEIN STAT 11/18/2019 10:45 AM CDT PROCALCITONIN STAT 11/18/2019 10:45 AM CDT MYOGLOBIN STAT 11/18/2019 10:45 AM CDT TROPONIN STAT 11/18/2019 10:45 AM CDT B NATRIURETIC PEPTIDE STAT 11/18/2019 10:45 AM CDT PARTIAL THROMBOPLASTIN STAT 11/18/2019 TIME (PTT) 10:45 AM CDT PROTHROMBIN TIME WITH INR STAT 11/18/2019 10:45 AM CDT COMPREHENSIVE METABOLIC STAT 11/18/2019 PANEL 10:45 AM CDT HC COMPLETE BLD COUNT STAT 11/18/2019 W/AUTO DIFF 10:45 AM CDT POC GLUCOSE Routine 11/18/2019 7:30 AM CDT ESTIMATED GFR Routine 11/18/2019 2:57 AM CDT PHOSPHORUS LEVEL Routine 11/18/2019 2:57 AM CDT MAGNESIUM LEVEL Routine 11/18/2019 2:57 AM CDT LIPASE LEVEL Routine 11/18/2019 2:57 AM CDT HEMOGLOBIN A1C Routine 11/18/2019 2:57 AM CDT COMPREHENSIVE METABOLIC Routine 11/18/2019 PANEL 2:57 AM CDT PARTIAL THROMBOPLASTIN Routine 11/18/2019 TIME (PTT) 2:57 AM CDT PROTHROMBIN TIME WITH INR Routine 11/18/2019 2:57 AM CDT HC COMPLETE BLD COUNT Routine 11/18/2019 W/AUTO DIFF 2:57 AM CDT TROPONIN Timed 11/18/2019 2:57 AM CDT LACTIC ACID LEVEL, SEPSIS Timed 11/18/2019 - NOW AND REPEAT 2X EVERY 2:57 AM CDT 3 HOURS TROPONIN Timed 11/18/2019 12:05 AM CDT URINALYSIS SCREEN AND STAT 11/18/2019 MICROSCOPY, WITH REFLEX 12:00 AM CDT TO CULTURE URINE DRUGS OF ABUSE STAT 11/18/2019 SCREEN 12:00 AM CDT URINE CULTURE STAT 11/18/2019 12:00 AM CDT ECG ED PRELIMINARY Routine 11/17/2019 INTERPRETATION 11:09 PM CDT LIPASE LEVEL STAT 11/17/2019 11:05 PM CDT LACTIC ACID LEVEL, SEPSIS Timed 11/17/2019 - NOW AND REPEAT 2X EVERY 11:05 PM CDT [address] HEAD WO CONTRAST STAT 11/17/2019 10:25 PM CDT COVID-19 QUALITATIVE PCR STAT 11/17/2019 10:20 PM CDT ECG 12-LEAD STAT 11/17/2019 8:55 PM CDT LIPASE LEVEL STAT 11/17/2019 8:55 PM CDT ESTIMATED GFR STAT 11/17/2019 8:55 PM CDT PARTIAL THROMBOPLASTIN STAT 11/17/2019 TIME (PTT) 8:55 PM CDT PROTHROMBIN TIME WITH INR STAT 11/17/2019 8:55 PM CDT ALCOHOL LEVEL, BLOOD STAT 11/17/2019 8:55 PM CDT CREATINE KINASE, TOTAL STAT 11/17/2019 (CPK) 8:55 PM CDT B NATRIURETIC PEPTIDE STAT 11/17/2019 8:55 PM CDT TROPONIN STAT 11/17/2019 8:55 PM CDT LACTIC ACID LEVEL, SEPSIS STAT 11/17/2019 - NOW AND REPEAT 2X EVERY 8:55 PM CDT 3 HOURS COMPREHENSIVE METABOLIC STAT 11/17/2019 PANEL 8:55 PM CDT HC COMPLETE BLD COUNT STAT 11/17/2019 W/AUTO DIFF 8:55 PM CDT XR CHEST 1 VW PORTABLE STAT 11/17/2019 7:40 PM CDT ED REFERRAL TO [facility] Routine 11/10/2019 Y[facility]ANISM PHYSICIAN 10:[address] CHEST WO CONTRAST STAT 11/10/2019 9:27 PM CDT ECG 12-LEAD STAT 11/10/2019 9:24 PM CDT D-DIMER Routine 11/10/2019 8:38 PM CDT ESTIMATED GFR Routine 11/10/2019 8:38 PM CDT B NATRIURETIC PEPTIDE Routine 11/10/2019 8:38 PM CDT TROPONIN Routine 11/10/2019 8:38 PM CDT COMPREHENSIVE METABOLIC Routine 11/10/2019 PANEL 8:38 PM CDT PARTIAL THROMBOPLASTIN Routine 11/10/2019 TIME (PTT) 8:38 PM CDT PROTHROMBIN TIME WITH INR Routine 11/10/2019 8:38 PM CDT HC COMPLETE BLD COUNT Routine 11/10/2019 W/AUTO DIFF 8:[address] ABDOMEN PELVIS WO STAT 09/28/2019 CONTRAST 6:51 PM CDT URINALYSIS SCREEN AND STAT 09/28/2019 MICROSCOPY, WITH REFLEX 5:40 PM CDT TO CULTURE URINE CULTURE STAT 09/28/2019 5:40 PM CDT ESTIMATED GFR STAT 09/28/2019 4:17 PM CDT LIPASE LEVEL STAT 09/28/2019 4:17 PM CDT COMPREHENSIVE METABOLIC STAT 09/28/2019 PANEL 4:17 PM CDT HC COMPLETE BLD COUNT STAT 09/28/2019 W/AUTO DIFF 4:17 PM CDT after 02/20/2019 Results * CT Angiogram Pe Chest (11/20/2019 2:40 PM CDT) Specimen Narrative Performed At EXAMINATION: CT ANGIOGRAM PE CHEST [facility] CLINICAL HISTORY: PE suspected interm ediate prob neg D-dimer, COVID 19. TECHNIQUE: PE PROTOCOL: CT angiograph ic images of the chest were obtained during intravenous administration of io dinated contrast. Computerized reformatted images and 3-D MIP images w ere also obtained and archived (CT pulmonary embolus protocol). CT imaging was performed with iterative re construction technique and/or automated exposure control to reduce radiation do se. COMPARISON: CT chest 11/10/2019. FINDINGS: Pulmonary arteries: Technically adequat e contrast bolus timing for evaluation for pulmonary embolism. No pulmonary em bolism. Main pulmonary artery diameter is normal. No evidence of acute right hear t strain. Lungs and airways: Multifocal groundgla ss nodules scattered throughout both lungs with a basilar and peripheral pre ponderance. Appearance is nonspecific but but is compatible with known Covid 19 p neumonia. Minimal linear opacity lateral aspect left lower lung with associated volume loss, disco id atelectasis versus scar/fibrosis.. Pleura: No pleural effusion or pneumoth orax. Mediastinum and lymph nodes: Prominent mediastinal lymph nodes measure up to 1.0 cm short axis, likely reactive and unch anged from prior. Cardiovascular: Mild coronary artery an d scattered aortic calcifications. 3.7 cm maximal coronal diameter fusiform ectas ia of the aortic root. Sinotubular junction and mid ascending thoracic aor ta are normal in caliber. Anatomic variant common origin brachiocephalic trunk and left common c arotid artery. Mild calcified plaque aortic arch. Minimal tortuosity descend ing thoracic aorta. Upper abdominal vasculature is unremarkable. Upper abdomen: No suspicious abnormalit ies. Scattered splenic granuloma. Prior cholecystectomy. Musculoskeletal: No suspicious osseous lesions. Mild degenerative changes of the thoracic spine. IMPRESSION: 1.Technically adequate contrast bolus t iming for evaluation for pulmonary embolism. No evidence of acute pulmonar y embolism. 2.Multifocal groundglass nodules with a peripheral and basilar preponderance , compatible with known COVID 19 pneumoni a. 3.3.7 cm maximal coronal diameter fusif orm ectasia mid ascending thoracic aorta. Common origin right brachiocephalic and left common carotid artery common anatomic variant. [facility]-[id number] Dictated and approved by radiology resi dent/fellow: Linda Pollock M.D. I, ALETHA DUKE MD, personally reviewed the images and resident's/fellow's findings and agree with the final report. Procedure Note [facility], Radiology Results Incoming - 11/20/2019 5:29 PM CDT EXAMINATION: CT ANGIOGRAM PE CHEST CLINICAL HISTORY: PE suspected intermediate prob neg D-dimer, COVID 19. TECHNIQUE: PE PROTOCOL: CT angiographic images of the chest were obtained during intravenous administration of iodinated contrast. Computerized reformatted images and 3-D MIP images were also obtained and archived (CT pulmonary embolus protocol). CT imaging was performed with iterative reconstruction technique and/or automated exposure control to reduce radiation dose. COMPARISON: CT chest 11/10/2019. FINDINGS: Pulmonary arteries: Technically adequate contrast bolus timing for evaluation for pulmonary embolism. No pulmonary embolism. Main pulmonary artery diameter is normal. No evidence of acute right heart strain. Lungs and airways: Multifocal groundglass nodules scattered throughout both lungs with a basilar and peripheral preponderance. Appearance is nonspecific but but is compatible with known Covid 19 pneumonia. Minimal linear opacity lateral aspect left lower lung with associated volume loss, discoid atelectasis versus scar/fibrosis.. Pleura: No pleural effusion or pneumothorax. Mediastinum and lymph nodes: Prominent mediastinal lymph nodes measure up to 1.0 cm short axis, likely reactive and unchanged from prior. Cardiovascular: Mild coronary artery and scattered aortic calcifications. 3.7 cm maximal coronal diameter fusiform ectasia of the aortic root. Sinotubular junction and mid ascending thoracic aorta are normal in caliber. Anatomic variant common origin brachiocephalic trunk and left common carotid artery. Mild calcified plaque aortic arch. Minimal tortuosity descending thoracic aorta. Upper abdominal vasculature is unremarkable. Upper abdomen: No suspicious abnormalities. Scattered splenic granuloma. Prior cholecystectomy. Musculoskeletal: No suspicious osseous lesions. Mild degenerative changes of the thoracic spine. IMPRESSION: 1.Technically adequate contrast bolus ti rogerio for evaluation for pulmonary embolism. No evidence of acute pulmonary embolism. 2.Multifocal groundglass nodules with a peripheral and basilar preponderance , compatible with known COVID 19 pneumonia. 3.3.7 cm maximal coronal diameter fusifo rm ectasia mid ascending thoracic aorta. Common origin right brachiocephalic and left common carotid artery common anatomic variant. [facility]-[id number] Dictated and approved by manager residential/fellow: Linda Pollock M.D. I, ALETHA DUKE MD, personally reviewed the images and resident's/fellow's findings and agree with the final report. Performing Organization Address City/[facility]/[place] [address] * POC glucose (11/20/2019 12:23 PM CDT) Only the most recent of 11 results within the time period is included. POC glucose 109 (H) 65 - 99 mg/dL [facility] Comment: YAZDANISM Monkey Breeder Name: [facility] Device ID: [id number] Chartable: [facility] Notified RN Specimen Blood Performing Organization Address City/[facility]/ZIP Code P james Number [facility] DEPARTMENT OF [address] [place] [address] PATHOLOGY AND GENOMIC MEDICINE [facility] YAZDANISM [address] [place] [address] * Transthoracic Echocardiogram Complete, (w Contrast, Strain and 3D if needed) (11/20/2019 8:45 AM CDT) Specimen Narrative Performed At [facility] Echo cardiography Report [address] [place] [address] Pat.Name: ARMIDA RICARDO Pat.ID: [id number] .Date: 11/19/2019 Refer.MD: NIK BURRIS MD Exam Time: 7:32:00 PM Study Type:Routine Echo Height: 62in Weight: 137lb BSA: 1.63 m2 Age: 9 1965,54Y Sex: FEMALE BP: 143/87 HR: 73 bpm Sonogrphr: Tori Higgins RDCS Pat. Stat.:Inpatient Room: [facility] Study Status:Final Echo Event ID:[id number] Order ID: [id number] Reason for Study:Lightheadedness/Presyn cope/Syncope-Signs consistent with a cardiac dx known to cause lighth eadedness/presyncope/syncope including but not limited to aortic silvia nosis, hypertrophic cardiomyopathy, or HF Procedures: 2D Echo, Colorflow Doppler, Portable, Strain SUMMARY: LV EF is normal. Estimated EF is 60-64% . RV systolic function is normal. LV relaxation is normal. LV filling pre ssure is normal. Estimated PA systolic pressure is 28 mm Hg, assuming a mean RAP of 5 mmHg. FINDINGS: LV: LV size is normal. LV EF i s normal. Overall wall motion is normal. Estimated EF is 6 0-64%. RV: RV size is normal. RV syst olic function is normal. LA: LA size is normal. RA: RA size is normal. AO: Aortic root diameter is no rmal. JAYME: No pericardial effusion. AV: No structural AV abnormali ties noted. MV: No structural MV abnormali ties noted. Mild mitral regurgitation. PV: No structural PV abnormali ties noted. TV: No structural TV abnormali ties noted. Mild tricuspid regurgitation Bartlett: LV relaxation is normal. LV filling pressure is normal. Other: Estimated PA systolic press ure is 28 mmHg, assuming a mean RAP of 5 mmHg. MEASUREMENTS: 2D Parasternal Long Vernon Ao Rtd 3.2 cm Index 2 cm/m2 LA Ds 3.6 cm IVSd 0.78 cm RWT 0.26 LVIDd 4.6 cm Index 2.9 cm/m2 LV Mass 99 g (87-12 9) LVIDs 3.9 cm LVM Index 61 g/m LV%fs 15 % LVOT 2.1 cm LVPWd 0.59 cm LA Sng Plane LA Area 11 cm (8.8-2 3.4) LA Vol 27 ml Index 17 ml/m2 LA LngAx 3.9 cm RA Sng Plane RA Vol 32 ml Index 19 ml/m2 RA LngAx 5.1 cm RA Area 14 cm (8.3-1 9.5) LVOT LVOT Area 3.4 cm DOPPLER LVOT For Flow LVOT TVI 20 cm LVOTmnPG 2 mmHg LVOTpkVel 95 cm/s HR 71 bpm LVOTpkPG 3.6 mmHg LVOT LVOT SV 67 ml LVOT CO 4.8 l/min SVi 41 ml/m LVOT CI 2.9 l/m/m Signed 11/20/2019 12:37 PM Homero Gonzalez MD Procedure Note Interface, Radiology Results In - 11/20/2019 12:38 PM CDT Echocardiography Report [address] [place] [address] Pat.Name: ARMIDA RICARDO Pat.ID: [id number] .Date: 11/19/2019 Refer.MD: NIK BURRIS MD Exam Time: 7:32:00 PM Study Type:Routine Echo Height: 62in Weight: 137lb BSA: 1.63 m2 Age: 9 1965,54Y Sex: FEMALE BP: 143/87 HR: 73 bpm Sonogrphr: Tori Higgins RDCS Pat. Stat.:Inpatient Room: 460 Study Status:Final Echo Event ID:[id number] Order ID: [id number] Reason for Study:Lightheadedness/Presyncope/Syncope-Signs consistent with a cardiac dx known to cause lightheadedness/presyncope/syncope including but not limited to aortic stenosis, hypertrophic cardiomyopathy, or HF Procedures: 2D Echo, Colorflow Doppler, Portable, Strain SUMMARY: LV EF is normal. Estimated EF is 60-64%. RV systolic function is normal. LV relaxation is normal. LV filling pressure is normal. Estimated PA systolic pressure is 28 mmHg, assuming a mean RAP of 5 mmHg. FINDINGS: LV: LV size is normal. LV EF is normal. Overall wall motion is normal. Estimated EF is 60-64%. RV: RV size is normal. RV systolic function is normal. LA: LA size is normal. RA: RA size is normal. AO: Aortic root diameter is normal. JAYME: No pericardial effusion. AV: No structural AV abnormalities noted. MV: No structural MV abnormalities noted. Mild mitral regurgitation. PV: No structural PV abnormalities noted. TV: No structural TV abnormalities noted. Mild tricuspid regurgitation Bartlett: LV relaxation is normal. LV filling pressure is normal. Other: Estimated PA systolic pressure is 28 mmHg, assuming a mean RAP of 5 mmHg. MEASUREMENTS: 2D Parasternal Long [place] Ao Rtd 3.2 cm Index 2 cm/m2 LA Ds 3.6 cm IVSd 0.78 cm RWT 0.26 LVIDd 4.6 cm Index 2.9 cm/m2 LV Mass 99 g (87-129) LVIDs 3.9 cm LVM Index 61 g/m LV%fs 15 % LVOT 2.1 cm LVPWd 0.59 cm LA Sng Plane LA Area 11 cm (8.8-23.4) LA Vol 27 ml Index 17 ml/m2 LA LngAx 3.9 cm RA Sng Plane RA Vol 32 ml Index 19 ml/m2 RA LngAx 5.1 cm RA Area 14 cm (8.3-19.5) LVOT LVOT Area 3.4 cm DOPPLER LVOT For Flow LVOT TVI 20 cm LVOTmnPG 2 mmHg LVOTpkVel 95 cm/s HR 71 bpm LVOTpkPG 3.6 mmHg LVOT LVOT SV 67 ml LVOT CO 4.8 l/min SVi 41 ml/m LVOT CI 2.9 l/m/m Signed 11/20/2019 12:37 PM Homero Gonzalez MD Performing Organization Address City/[facility]/ZIP Code P [facility]ames Number [facility] [address] [place] [address] * Estimated GFR (11/20/2019 4:36 AM CDT) Only the most recent of 7 results within the time period is included. Estimated GFR >=90 mL/min/1.73 m2 [facility] Comment: [facility] Interpretation G1 >=90 Normal or high G2 60-89 Mildly decreased G3a 45-59 Mildly to moderately decreased G3b 30-44 Moderately to severely decreased G4 15-29 Severely decreased G5 <15 Kidney failure The eGFR was calculated using the Chronic Kidney Disease Epidemiology Collaboration (CKD-EPI) equation. Interpretation is based on recommendations of the National Kidney Foundation-Kidney Disease Outcomes Quality Initiative (NKF-KDOQI) published in 2014. Specimen Performing Organization Address City/[facility] P james Number [facility] [place] [address] PATHOLOGY AND GENOMIC MEDICINE [address] * CBC with platelet and differential (11/20/2019 4:36 AM CDT) Only the most recent of 7 results within the time period is included. WBC 5.14 4.50 - 11.00 k/uL [facility] RBC 3.85 (L) 4.20 - 5.50 m/uL [facility] HGB 11.5 (L) 12.0 - 16.0 g/dL [facility] HCT 33.7 (L) 37.0 - 47.0 % [facility] MCV 87.5 82.0 - 100.0 fL [facility] MCH 29.9 27.0 - 34.0 pg [facility] MCHC 34.1 31.0 - 37.0 g/dL [facility] RDW - SD 39.6 37.0 - 55.0 fL [facility] MPV 11.7 8.8 - 13.2 fL [facility] Platelet count 213 150 - 400 k/uL [facility] Nucleated RBC 0.00 /100 WBC [facility] Neutrophils 46.7 39.0 - 69.0 % [facility] Lymphocytes 40.3 25.0 - 45.0 % [facility] Monocytes 10.1 (H) 0.0 - 10.0 % [facility] Eosinophils 2.1 0.0 - 5.0 % [facility] Basophils 0.6 0.0 - 1.0 % [facility] Immature 0.2Comment: "Immature 0.0 - 1.0 % [facility] granulocytes granulocytes" (promyelocytes, METHOD IST myelocytes, metamyelocytes) HOSPITAL Specimen Blood Performing Organization Address City/State/ZIP Code P james Number [facility] DEPARTMENT OF [address] [place] [address] PATHOLOGY AND GENOMIC MEDICINE [address] * Comprehensive metabolic panel (11/20/2019 4:36 AM CDT) Only the most recent of 7 results within the time period is included. Sodium 140 135 - 148 mEq/L [facility] Potassium 4.0 3.5 - 5.0 mEq/L [facility] Chloride 104 98 - 112 mEq/L [facility] CO2 24 24 - 31 mEq/L [facility] Anion gap 12@ANIO 7 - 15 mEq/L [facility] BUN 7 6 - 20 mg/dL [facility] Creatinine 0.47 (L) 0.50 - 0.90 mg/dL [facility] Glucose 105 (H) 65 - 99 mg/dL [facility] Calcium 9.6 8.3 - 10.2 mg/dL [facility] Protein 7.1 6.3 - 8.3 g/dL [facility] Comment: [facility] 4.6-7.0 g/dL 1 week 4.4-7.6 g/dL 7 months-1year 5.1-7.3 g/dL 1-2 years 5.6-7.5 g/dL >3 years 6.0-8.0 g/dL 18-150 6.3-8.3 g/dL Albumin 3.4 (L) 3.5 - 5.0 g/dL [facility] A/G ratio 0.9 0.7 - 3.8 [facility] Alkaline 68 35 - 104 U/L [facility] phosphatase [facility] AST 22 10 - 35 U/L [facility] ALT 35 5 - 50 U/L [facility] Total bilirubin 0.3 0.0 - 1.2 mg/dL [facility] Specimen Blood Performing Organization Address City/[facility]/ZIP Code P james Number [facility] DEPARTMENT OF [address] [place] [address] PATHOLOGY AND GENOMIC MEDICINE [address] * MRI Brain Wo Contrast (11/19/2019 10:58 AM CDT) Specimen Narrative Performed At [facility] Study:MRI BRAIN WO CONTRAST History:Focal neuro deficit < 6 hrs stroke suspected COMPARISON:CT brain yesterday TECHNIQUE: Multiplanar multisequence MR images of the brain without IV contrast. FINDINGS: Parenchymal volume is normal. No white matter signal abnormality. There is no acute infarct, hemorrhage, midline shif t, hydrocephalus, extra-axial collections, or edema. The orbits are u nremarkable. The visualized paranasal sinuses and mastoid air cells are without significant fluid signal. T he calvarium is unremarkable. IMPRESSION: No acute abnormality. [facility] [id number] Procedure Note Interface, Radiology Results Incoming - 11/19/2019 11:09 AM CDT Study:MRI BRAIN WO CONTRAST History:Focal neuro deficit < 6 hrs stroke suspected COMPARISON:CT brain yesterday TECHNIQUE: Multiplanar multisequence MR images of the brain without IV contrast. FINDINGS: Parenchymal volume is normal. No white matter signal abnormality. There is no acute infarct, hemorrhage, midline shift, hydrocephalus, extra-axial collections, or edema. The orbits are unremarkable. The visualized paranasal sinuses and mastoid air cells are without significant fluid signal. The calvarium is unremarkable. IMPRESSION: No acute abnormality. [facility] [id number] Performing Organization Address City/State/ZIP Code P james Number [facility] [id number] [place] [address] * EEG (routine) (11/18/2019 10:25 PM CDT) Impressions Performed At This is a normal awake and drowsy Video -EEG study. There are no epileptiform discharges or seizures cap tured. Melony Yao MD ICD-10 Code: R569 Narrative Performed At This result has an attachment that is n ot available. VIDEO-EEG RECORDING AWAKE & DROWSY. Date of Service:11/19/19 Patient Name: Armida Ricardo Date of : 1965 Attending MD: Melony Yao MD TECHNIQUE: Recordings were obtained usi ng a standard international 10-20 electrode placement supplemented with a single electrocardiogram chest electrode. The recordings were obtained using a reference electrode and reformatted digitally into sequential b ipolar and referential montages for review. OBJECT OF RECORDIN y.o. year old f emale with COVID19, AMS, referred for video-EEG to evaluate for seizures. FINDINGS: Background: The waking background at [facility] is continuous, composed of an admixture of largely alpha and beta nancy quencies, with the expected anterior to posterior voltage and frequ ency gradient with intermixed faster frequencies anteriorly and a sym metric and well-formed posterior dominant alpha rhythm of 10 hertz, that is reactive to eye opening. With drowsiness, there is the expected attenuation of the posterior dominant rhythm. Sleep is not captured. Hyperventilation: was not performed Photic stimulation: was performed with no evidence of photic driving Interictal: There are no epileptiform d ischarges or seizures captured. * Syphilis total antibody (11/18/2019 3:40 PM CDT) Syphilis total Non-reactiveComment: No Non-reactive [place] [facility] antibody serological evidence of YAZDANISM syphilis infection. HOSPITAL Specimen Serum Performing Organization Address City/[facility]/ZIP Code P james Number [facility] DEPARTMENT OF [address] [place] [id number] PATHOLOGY AND GENOMIC MEDICINE [address] * HIV Ag/Ab combination (11/18/2019 3:40 PM CDT) HIV Ag/Ab Non-reactive Non-reactive [facility] Specimen Blood Performing Organization Address City/State/ZIP Code P james Number [facility] [place] [address] PATHOLOGY AND [facility] MEDICINE [address] * Homocystine, plasma (11/18/2019 3:40 PM CDT) [facility] Homocysteine 5.7 0.0 - 15.0 umol/L [place] Comment: YAZDANISM The risk for coronary vascular HOSPITAL disease increases progressively with homocysteine concentration. A 3.4 times greater risk is associated with a homocysteine concentration of greater than 15.8 umol/L as compared to a concentration below 14.1 umol/L. Specimen Blood Performing Organization Address City/[facility]/ZIP [facility] P james Number [facility] [place] [address] * RACHEL titer (11/18/2019 3:40 PM CDT) [facility] RACHEL titer 1:80 (A) Not-Detected [facility] RACHEL pattern Homogeneous (A) Not-Detected [facility] Specimen Blood Performing Organization Address City/[facility] P james Number [facility] [place] [address] PATHOLOGY AND [facility] MEDICINE [address] * Rheumatoid factor (11/18/2019 3:40 PM CDT) [facility] Rheumatoid <10 0 - 13 IU/mL [facility] Specimen Blood Performing Organization Address City/[facility]/ZIP [facility] P james Number [facility] [place] [address] PATHOLOGY AND [facility] MEDICINE [address] * RACHEL (11/18/2019 3:40 PM CDT) [facility] RACHEL screen Positive (A) Negative [place] Comment: YAZDANISM Test performed using [facility] DAPI RACHEL kit (Indirect Immunofluorescence Assay) for Anti-Nuclear Antibody on [employer] 160 Analyzer. Specimen Blood Performing Organization Address City/[facility]/ZIP Code P james Number [facility] [place] [address] PATHOLOGY [facility] MEDICINE [address] * T3 (11/18/2019 3:40 PM CDT) T3 110 80 - 200 ng/dL [facility] Specimen Blood Performing Organization Address City/State/ZIP Code P james Number [facility] [place] [address] PATHOLOGY AND [facility] MEDICINE [address] * Thyroid stimulating hormone (11/18/2019 3:40 PM CDT) TSH 0.98 0.27 - 4.20 uIU/mL [facility] Specimen Blood Performing Organization Address City/State/ZIP Code P james Number [facility] [place] [address] PATHOLOGY AND [facility] MEDICINE [address] * T4, free (11/18/2019 3:40 PM CDT) Pathologist [facility] T4, free 1.3 0.9 - 1.7 ng/dL [facility] Specimen Blood Performing Organization Address City/[facility] P james Number [facility] [place] [address] PATHOLOGY AND [facility] MEDICINE [address] * Folate level (11/18/2019 3:40 PM CDT) Pathologist [facility] Folate 12.2 4.8 - 24.2 ng/mL [facility] Specimen Serum Performing Organization Address City/[facility] Code P james Number [facility] [place] [address] PATHOLOGY AND [facility] MEDICINE [address] * Vitamin B12 level (11/18/2019 3:40 PM CDT) Pathologist [facility] Vitamin B12 678 211 - 946 pg/mL [place] Comment: YAZDANISM Significant overlap exists HOSPITAL between normal and deficiency states. However, most patients with deficiencies will have Serum B12 <200 pg/mL. Specimen Serum Performing Organization Address City/[facility]/ZIP Code P james Number [facility] [place] [address] PATHOLOGY AND GENOMIC MEDICINE [address] * Lipid panel (11/18/2019 3:40 PM CDT) Pathologist [facility] Cholesterol 125 <200 mg/dL [facility] Triglycerides 88 <150 mg/dL [facility] HDL cholesterol 44 >40 mg/dL [facility] LDL cholesterol 79Comment: Result obtained by <100 mg/dL [place] direct LDL measurement [facility] Comment: YAZDANISM Total Cholesterol (mg/dL) [facility] <200 Desirable 200-239 Borderline-high >=240 High Triglycerides (mg/dL) <150 Normal 150-199 Borderline-high 200-499 High >=500 Very high HDL Cholesterol (mg/dL) <40 Low (male) <40 Low (female) LDL Cholesterol (mg/dL) <100 Optimal 100-129 Near or above optimal 130-159 Borderline-high 160-189 High >=190 Very high Risk Catergories that modify LDL goals. Risk Catergories LDL goal (mg/dL) CHD and CHD risk equivalent <100 (10-year risk >20%) Multiple (2+) risk factors <130 (10-year risk =<20%) 0-1 risk factors <160 (<10-year risk) Defining levels of lipids in metabolic syndrome Triglycerides >=150 mg/dL HDL Cholesterol Men <40 mg/dL Women <40 mg/dL Non-HDL cholesterol is a second target for therapy in persons with high triglycerides (>=200 mg/dL) Specimen Blood Performing Organization Address City/State/ZIP Code P james Number [facility] DEPARTMENT OF [address] [place] [address] PATHOLOGY AND GENOMIC MEDICINE [address] * ECG 12 lead (11/18/2019 12:38 PM CDT) Only the most recent of 3 results within the time period is included. Ventricular 80 [facility] rate Atrial rate 80 [facility] MS interval 128 [facility] QRSD interval 84 [facility] QT interval 360 [facility] QTC interval 415 [facility] P axis 1 39 [facility] QRS axis 1 53 [facility] T wave axis 41 [facility] EKG impression Normal sinus rhythm-T wave [facility] MUSE abnormality, consider anterior ischemia-Abnormal ECG-In automated comparison with ECG of 17-NOV-2019 20:55,-No significant change was found- Specimen Narrative Performed At This result has an attachment that is n ot available. Performing Organization Address City/[facility]/ZIP Code P james Number [facility] MUSE [address] [place] [phone] * Procalcitonin (11/18/2019 10:45 AM CDT) Procalcitonin <0.07 <=0.07 ng/mL [facility] Comment: INTERPRETIVE INFORMATION: Procalcitonin Procalcitonin > 2.00 ng/mL: Procalcitonin levels above 2.00 ng/mL on the first day of ICU admission represent a high risk for progression to severe sepsis and/or septic shock. Procalcitonin < 0.50 ng/mL: Procalcitonin levels below 0.50 ng/mL on the first day of ICU admission represent a low risk for progression to severe sepsis and/or septic shock. If the procalcitonin measurement is performed shortly after the systemic infection process has started (usually less than 6 hours), these values may still be low. As various non-infectious conditions are known to induce procalcitonin as well, procalcitonin levels between 0.5 ng/mL and 2.00 ng/mL should be reviewed carefully to take into account the specific clinical background and condition(s) of the individual patient. Performed By: [facility] [place] [id number] Environmental Protection Geologist: Shreya Veronica DO, MPH Performed by [facility], [address] [place] [address] [email or web address], Antonio Neri MD - Lab. Director Specimen Serum Performing Organization Address [facility] P james Number [facility] [address] [place] [address] REF [address] [place] [phone] * Myoglobin (11/18/2019 10:45 AM CDT) Myoglobin <21 (A) 21 - 72 ng/mL [facility] Specimen Blood Performing Organization Address City/State/ZIP Code P james Number [facility] DEPARTMENT OF [address] [place] [id number] PATHOLOGY AND GENOMIC MEDICINE [address] * Troponin (11/18/2019 10:45 AM CDT) Only the most recent of 5 results within the time period is included. Pathologist [facility] Troponin <0.006 0.000 - 0.040 ng/mL [place] Comment: YAZDANISM In patients suspected of HOSPITAL having a myocardial infarction, along with all other appropriate clinical measures and actions including ECG and other diagnostics as appropriate, measure Ultra TnI at 0 hrs and at 3 hrs. Myocardial infarction VERY LIKELY The 0 hr TnI level is > 0.10 ng/mL Myocardial infarction LIKELY The 0 hr TnI level is > 0.04 ng/mL and 3 hr level is increased or decreased by at least 0.020 ng/mL Myocardial infarction VERY UNLIKELY Both the 0 hr and 3 hr TnI levels <= 0.04 ng/mL(within normal limits) OR 0 hr is > 0.04 ng/mL and 3 hr is increased OR decreased by less than 0.020 ng/mL Specimen Blood Performing Organization Address City/State/ZIP Code P james Number [facility] DEPARTMENT OF [address] [place] [address] PATHOLOGY AND GENOMIC MEDICINE [address] * Interleukin 6 (11/18/2019 10:45 AM CDT) Pathologist [facility] Interleukin 6 <5 0 - 5 pg/mL [place] Comment: YAZDANISM This test was developed and HOSPITAL its performance characteristics determined by the Department of Pathology and Genomic Medicine, [facility]. Interleukin 6 is tested by [employer] by one-step immunoenzymatic assay. It has not been cleared or approved by FDA. The laboratory is regulated under CLIA as qualified to perform high-complexity testing. This test is used for clinical purposes. It should not be regarded as investigational or for research. Specimen Blood Performing Organization Address City/State/ZIP Code P james Number [facility] DEPARTMENT OF [address] [place] [address] PATHOLOGY AND [facility] MEDICINE [address] * Partial thromboplastin time, activated (11/18/2019 10:45 AM CDT) Only the most recent of 4 results within the time period is included. [facility] PTT 27.3 23.0 - 36.0 sec [place] Comment: YAZDANISM PTT therapeutic range for HOSPITAL unfractionated heparin is 61.0-112.0 seconds which corresponds to Anti-Xa 0.3-0.7 U/ml. Specimen Blood Performing Organization Address City/[facility]/ZIP Code P james Number [facility] [place] [address] PATHOLOGY AND [facility] MEDICINE [address] * Prothrombin time with INR (11/18/2019 10:45 AM CDT) Only the most recent of 4 results within the time period is included. [facility] Prothrombin 14.2 11.5 - 14.5 sec [facility] INR 1.1 [place] Comment: YAZDANISM The International Normalized HOSPITAL Ratio (INR) is a therapeutic monitoring tool for patients who are stable on oral anticoagulant therapy. An INR of 2.0-3.0 is suggested for deep vein thrombosis/pulmonary embolism. Specimen Blood Performing Organization Address City/[facility] P james Number [facility] [place] [address] PATHOLOGY AND [facility] MEDICINE [address] * Fibrinogen (11/18/2019 10:45 AM CDT) [facility] Fibrinogen 342 200 - 450 mg/dL [facility] Specimen Blood Performing Organization Address City/[facility]/ZIP Code P james Number [facility] DEPARTMENT OF [address] [place] [address] PATHOLOGY AND [facility] MEDICINE [address] * D-dimer (11/18/2019 10:45 AM CDT) Only the most recent of 2 results within the time period is included. [facility] D-dimer <0.27 0.00 - 0.40 ug/mL [facility] Comment: FEU YAZDANISM Units are ug/ml Fibrinogen HOSPITAL Equivalent Unit. When combined with low clinical probability, D-dimer results of less than 0.5 ug/ml FEU have a good negative predictive value in excluding PE or DVT. For D-dimer results greater than 0.5 ug/ml FEU further testing is indicated if PE or DVT is suspected clinically. Elevated D-dimer results have been reported in DVT, PE, and DIC cases and may indicate the presence of a clot. D-dimer results may be elevated due to old age, , inflammatory diseases, trauma, post-operative states, sepsis, and malignancies. Specimen Blood Performing Organization Address City/[facility] P james Number [facility] [place] [address] PATHOLOGY AND [facility] MEDICINE [address] * Type and screen (11/18/2019 10:45 AM CDT) ABO grouping O [facility] Rh type POS [facility] Antibody screen NEG [place] (gel) [facility] Specimen Blood Performing Organization Address [facility] P james Number [facility] [place] [address] PATHOLOGY AND [facility] MEDICINE [address] * C-reactive protein (11/18/2019 10:45 AM CDT) [facility] CRP <0.30 0.00 - 0.50 mg/dL [facility] Specimen Blood Performing Organization Address [facility] P james Number [facility] [place] [address] PATHOLOGY AND [facility] MEDICINE [address] * Triglycerides (11/18/2019 10:45 AM CDT) Pathologist [facility] Triglycerides 76 <150 mg/dL [facility] Specimen Blood Performing Organization Address City/[facility] P james Number [facility] [place] [address] PATHOLOGY AND [facility] MEDICINE [address] * B natriuretic peptide (11/18/2019 10:45 AM CDT) Only the most recent of 3 results within the time period is included. Pathologist [facility] BNP <3 0 - 100 pg/mL [facility] Specimen Blood Performing Organization Address City/[facility]/ZIP [facility] P james Number [facility] DEPARTMENT OF [address] [place] [address] PATHOLOGY AND GENOMIC MEDICINE [address] * LDH (11/18/2019 10:45 AM CDT) LDH 122 87 - 225 U/L [facility] Specimen Blood Performing Organization Address City/[facility]/ZIP [facility] P james Number [facility] [place] [address] PATHOLOGY AND GENOMIC MEDICINE [address] * Ferritin level (11/18/2019 10:45 AM CDT) Ferritin level 372 (H) 13 - 150 ng/mL [facility] Specimen Blood Performing Organization Address [facility] P james Number [facility] [place] [address] PATHOLOGY AND GENOMIC MEDICINE [address] * Lactic acid level, SEPSIS - Now and repeat 2x every 3 hours (11/18/2019 2:57 AM CDT) Only the most recent of 3 results within the time period is included. Lactic acid 1.4 0.5 - 2.2 mmol/L [facility] Specimen Blood Performing Organization Address [facility] P james Number [facility] [place] [address] PATHOLOGY AND GENOMIC MEDICINE [address] * Phosphorus level (11/18/2019 2:57 AM CDT) Phosphorus 3.8 2.4 - 4.5 mg/dL [facility] Specimen Blood Performing Organization Address City/[facility]/ZIP [facility] P james Number [facility] [place] [address] PATHOLOGY AND GENOMIC MEDICINE [address] * Magnesium level (11/18/2019 2:57 AM CDT) Magnesium 1.7 1.6 - 2.6 mg/dL [facility] Specimen Blood Performing Organization Address City/[facility]/ZIP Code P james Number [facility] [place] [address] PATHOLOGY AND GENOMIC MEDICINE [address] * Lipase level (11/18/2019 2:57 AM CDT) Only the most recent of 4 results within the time period is included. Pathologist [facility] Lipase 15 13 - 60 U/L [facility] Specimen Blood Performing Organization Address City/[facility]/[place] [address] PATHOLOGY AND GENOMIC MEDICINE [address] * Hemoglobin A1c (11/18/2019 2:57 AM CDT) Pathologist [facility] Hemoglobin A1C 6.7 (H) 4.0 - 5.6 % [facility] Comment: YAZDANISM HbA1c cutoffs for diagnosing HOSPITAL diabetes: 4.0% - 5.6% = normal 5.7% - 6.4% = increased risk for diabetes (prediabetes)9 >=6.5% = diabetes9 Goals for glycemic control (ADA 2016) < 7.0% Target for non adults with diabetes. More or less stringent targets may be appropriate for individual patients. <7.5% Target for Children and adolescents with type 1 diabetes. Specimen Blood Performing Organization Address [facility] [place] [phone] PATHOLOGY AND [facility] MEDICINE [address] * Urinalysis screen and microscopy, with reflex to culture (11/18/2019 12:00 AM CDT) Only the most recent of 2 results within the time period is included. Specimen site Clean catch [facility] Color, UA Straw [facility] Appearance, UA Clear [facility] Specific 1.005 1.001 - 1.035 [place] gravity, [facility] pH, UA 7.0 5.0 - 8.5 [facility] Protein, UA Negative Negative [facility] Glucose, UA Negative Negative [facility] Ketones, UA Negative Negative [facility] Bilirubin, UA Negative Negative [facility] Blood, UA Negative Negative [facility] Nitrite, UA Negative Negative [facility] Urobilinogen, <2.0 <2.0 [facility] Leukocyte Negative Negative [place] esterase, [facility] Epithelial 1 /HPF [facility] cells, UA [facility] WBC, UA <1 0 - 4 /HPF [facility] RBC, UA <1 0 - 5 /HPF [facility] Bacteria, UA None seen None seen [facility] Yeast, UA None seen [facility] Yeast with None seen [place] [facility] Specimen Urine Performing Organization Address City/[facility]/ZIP Code P james Number [facility] [place] [address] PATHOLOGY AND GENOMIC MEDICINE [address] * Urine drugs of abuse screen (11/18/2019 12:00 AM CDT) Amphetamine Negative [place] screen, urine [facility] Barbiturate Negative [facility] screen, urine [facility] Benzodiazepine Negative [facility] screen, urine [facility] Cocaine screen, Negative [place] urine [facility] Methadone Negative [place] metabolite YAZDANISM (EDDP), urine [facility] Opiates screen, Negative [place] urine [facility] Oxycodone Negative [place] screen, urine [facility] Phencyclidine Negative [facility] screen, urine [facility] Tricyclic Negative [facility] screen, urine [facility] Cannabinoid Negative [place] screen, urine Comment: YAZDANISM Drug screen minimum HOSPITAL concentration of detectability Amphetamines 1000 ng/mL Barbiturates 200 ng/mL Benzodiazepines 300 ng/mL Cocaine 300 ng/mL Methadone 300 ng/mL Opiates 300 ng/mL Oxycodone 300 ng/mL Phencyclidine 25 ng/mL Cannabinoids 50 ng/mL Tricyclics 1000 ng/mL Results are from screening tests and should only be used for medical evaluation. Drug testing for legal purposes requires definitive (or confirmatory) testing methods, which are available upon request. Contact the laboratory if definitive testing is required. Specimen Urine Performing Organization Address City/[facility] P james Number [facility] [place] [address] PATHOLOGY AND GENOMIC MEDICINE [address] * Urine culture (11/18/2019 12:00 AM CDT) Only the most recent of 2 results within the time period is included. Urine culture SEE COMMENTComment: [place] Bacteriuria screen negative. [facility] Specimen Performing Organization Address City/[facility]/ZIP [facility] P james Number [facility] [place] [address] PATHOLOGY AND GENOMIC MEDICINE [facility] [address] [place] [id number] [facility] * ECG ED Preliminary Interpretation - Not an Order (11/17/2019 11:09 PM CDT) Narrative Performed At Aniceto Coughlin MD 12/17/2019 8:57 AM ECG ED Preliminary Interpretation - Not an Order Performed by: Aniceto Coughlin MD Authorized by: Aniceto Coughlin MD ECG reviewed by ED Physician in the abs ence of a newspaper carrier: yes Interpretation: Interpretation: normal Rate: ECG rate: 86 ECG rate assessment: normal Rhythm: Rhythm: sinus rhythm QRS: QRS axis: Normal QRS intervals: Normal ST segments: ST segments: Normal * CT Head Wo Contrast (11/17/2019 10:25 PM CDT) Specimen Narrative Performed At Examination: CT HEAD WO CONTRAST [facility] Clinical History: headaches Comparison: None. CT scan of the brain was performed with out intravenous contrast. CT scans are performed using radiation dose reduction techniques. Technical factors are evaluated and adjusted to e nsure appropriate moderation of exposure. Automated dose management technology is applied to adjust radiation exposure while achieving a diagnostic quality image. CT imaging was performed with iterative reconstruction techniques and/or automa gaurav exposure control to reduce radiation dose. No mass effect or midline shift is seen . The ventricles are normal in size. No intracranial hemorrhage is seen. The visualized bony structures shows no acute abnormality. Oshea-white junctions are preserved. IMPRESSION: 1. No acute or focal intracranial abnor mality identified. [facility]-[id number] Procedure Note Hm Interface, Radiology Results Incoming - 11/17/2019 10:31 PM CDT Examination: CT HEAD WO CONTRAST Clinical History: headaches Comparison: None. CT scan of the brain was performed without intravenous contrast. CT scans are performed using radiation dose reduction techniques. Technical factors are evaluated and adjusted to ensure appropriate moderation of exposure. Automated dose management technology is applied to adjust radiation exposure while achieving a diagnostic quality image. CT imaging was performed with iterative reconstruction techniques and/or automated exposure control to reduce radiation dose. No mass effect or midline shift is seen. The ventricles are normal in size. No intracranial hemorrhage is seen. The visualized bony structures shows no acute abnormality. Oshea-white junctions are preserved. IMPRESSION: 1. No acute or focal intracranial abnorm ality identified. [facility]-[id number] Performing Organization Address City/State/[place] [address] * COVID-19 qualitative PCR (11/17/2019 10:20 PM CDT) Pathologist [facility] Interpretation Positive results are [place] indicative of active infection YAZDANISM with 2019-nCoV but do not rule HOSPITAL out bacterial infection or coinfection with other viruses. The agent detected may not be the definite cause of disease. COVID-19 Detected (A) Not-Detected [place] qualitative PCR [facility] result HOSPITAL COVID-19 See link below for PDF Lab [place] qualitative PCR ReportComment: Case Number: [facility] [id number] HOSPITAL Specimen Nasopharyngeal swab Performing Organization Address City/[facility] P james Number [facility] [place] [address] PATHOLOGY AND GENOMIC MEDICINE [address] * Creatine kinase, total (CPK) (11/17/2019 8:55 PM CDT) [facility] Creatine kinase 26 26 - 192 U/L [facility] Specimen Blood Performing Organization Address City/[facility] P james Number [facility] [place] [address] PATHOLOGY AND GENOMIC MEDICINE [address] * Alcohol level, blood (11/17/2019 8:55 PM CDT) [facility] Alcohol None Detected mg/dL [place] Comment: [facility] None Detected Legal Intoxication in [place] 80 mg/dL (0.08%) - Whole Blood Toxic Concentration 200 mg/dL (0.2%) Potentially Fatal 350 - 500 mg/dL (0.35 - 0.5%) Alcohol percent None Detected % [facility] Specimen Blood Performing Organization Address City/[facility] P james Number [facility] [place] [address] PATHOLOGY AND GENOMIC MEDICINE [address] * XR Chest 1 Vw Portable (11/17/2019 7:40 PM CDT) Specimen Narrative Performed At XR CHEST 1 VW PORTABLE [facility] CLINICAL INDICATION: SOB COMPARISON: None available. IMPRESSION: The lungs are clear without acute cardi opulmonary disease. Heart and mediastinal contours are within normal limits. Bone s are intact with mild curvature to the right. *RM-WPHYMDL Procedure Note Interface, Radiology Results Incoming - 11/17/2019 8:25 PM CDT XR CHEST 1 VW PORTABLE CLINICAL INDICATION: SOB COMPARISON: None available. IMPRESSION: The lungs are clear without acute cardiopulmonary disease. Heart and mediastinal contours are within normal limits. Bones are intact with mild curvature to the right. *RM-WPHYMDL Performing Organization Address City/State/ZIP Code P james Number [facility] [id number] [place] [address] * CT Chest Wo Contrast (11/10/2019 9:27 PM CDT) Specimen Narrative Performed At CT CHEST WO CONTRAST [facility] CLINICAL INDICATION: Shortness of breat h TECHNIQUE: Multidetector CT imaging o f the chest was performed without intravenous contrast with multiplanar r econstructions. CT imaging was performed with iterative reconstruction technique and/or automated exposure control to reduce radiation dose. COMPARISON: None IMPRESSION: The lack of intravenous contrast partia lly limits evaluation. Lungs and large airways: Mild bibasil ar atelectasis. No consolidations, effusions, or pneumothorax. Trachea and mainstem bronchi are patent. Heart and pericardium: Heart size is normal. Trace pericardial effusion. Some mild coronary artery calcifications are identified. Mediastinum and mindy: No mass or kavita rogelio. Lymph nodes: No pathological adenopat hy in the mindy, axilla or mediastinum. Vasculature: Mild atherosclerotic vas cular calcifications are identified. Common origin is seen of left common ca rotid artery and right brachiocephalic artery. Upper abdomen: Patient is status post cholecystectomy. Calcified granulomata are seen of the spleen. Diverticulosis is seen of the large bowel. Bones: No acute osseous abnormality. Mild degenerative change of the thoracic spine. Soft tissues: Unremarkable. Summary: No emergent findings. [facility]-[id number] Procedure Note Interface, Radiology Results Incoming - 11/10/2019 9:[address] CHEST WO CONTRAST CLINICAL INDICATION: Shortness of breath TECHNIQUE: Multidetector CT imaging of the chest was performed without intravenous contrast with multiplanar reconstructions. CT imaging was performed with iterative reconstruction technique and/or automated exposure control to reduce radiation dose. COMPARISON: None IMPRESSION: The lack of intravenous contrast partially limits evaluation. Lungs and large airways: Mild bibasilar atelectasis. No consolidations, effusions, or pneumothorax. Trachea and mainstem bronchi are patent. Heart and pericardium: Heart size is normal. Trace pericardial effusion. Some mild coronary artery calcifications are identified. Mediastinum and mindy: No mass or hematoma. Lymph nodes: No pathological adenopathy in the mindy, axilla or mediastinum. Vasculature: Mild atherosclerotic vascular calcifications are identified. Common origin is seen of left common carotid artery and right brachiocephalic artery. Upper abdomen: Patient is status post cholecystectomy. Calcified granulomata are seen of the spleen. Diverticulosis is seen of the large bowel. Bones: No acute osseous abnormality. Mild degenerative change of the thoracic spine. Soft tissues: Unremarkable. Summary: No emergent findings. [facility]-[id number] Performing Organization Address City/State/ZIP Code P james Number [facility] [id number] [place] [address] * CT Abdomen Pelvis Wo Contrast (09/28/2019 6:51 PM CDT) Specimen Narrative Performed At EXAMINATION: CT ABDOMEN PELVIS WO CONTRAST [facility] CLINICAL HISTORY: 54 years Female Abd p ain unspecified, LLQ pain r o diverticulitis TECHNIQUE: Multiple axial images of the abdomen and pelvis were obtained without intravenous administration of iodinated contrast. Sagittal and coronal computerized reformatted images were al so obtained. CT imaging was performed with iterative reconstruction techniques and/or automa gaurav exposure control to reduce radiation dose. The lack of intravenous contrast reduces the sensitivity of detecting solid organ disease. COMPARISON: None. IMPRESSION: Lung bases: The lung bases are free of acute disease. Liver: The liver is normal. No focal ma ss. Gallbladder/Biliary: Gallbladder is earlene gically absent. There is no biliary duct dilation. Spleen: Spleen is normal in size with c alcified granuloma. Pancreas: Pancreas is unremarkable. Adrenal Glands: The adrenal glands are unremarkable. Kidneys: There are no renal/ureteral ca lculi or hydronephrosis. Vascular: There is scattered aortic ath erosclerotic calcification without aneurysm. Nodes: There is increased number of sma ll mesenteric nodes in the left abdomen measuring up to 9 mm in short axis with surrounding mesenteric stranding. 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 Th ere is no retroperitoneal lymphadenopathy. Bowel: No evidence of intestinal obstru ction or inflammation. Appendix is not seen. There is no pericolonic inflammat ion. Diverticulum noted in the proximal sigmoid colon. Ascites/fluid collections: No ascites o r fluid collections. Genitourinary: There has been hysterect marisela. Bladder is unremarkable. Bones/soft tissues: Visualized osseous structures are intact. No suspicious osseous lesion identified. 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 2.No evidence of diverticulitis. Procedure Note Interface, Radiology Results - 09/28/2019 7:05 PM CDT EXAMINATION: CT ABDOMEN PELVIS WO CONTRAST CLINICAL HISTORY: 54 years Female Abd pain unspecified, LLQ pain r o diverticulitis TECHNIQUE: Multiple axial images of the abdomen and pelvis were obtained without intravenous administration of iodinated contrast. Sagittal and coronal computerized reformatted images were also obtained. CT imaging was performed with iterative reconstruction techniques and/or automated exposure control to reduce radiation dose. The lack of intravenous contrast reduces the sensitivity of detecting solid organ disease. COMPARISON: None. IMPRESSION: Lung bases: The lung bases are free of acute disease. Liver: The liver is normal. No focal mass. Gallbladder/Biliary: Gallbladder is surgically absent. There is no biliary duct dilation. Spleen: Spleen is normal in size with calcified granuloma. Pancreas: Pancreas is unremarkable. Adrenal Glands: The adrenal glands are unremarkable. Kidneys: There are no renal/ureteral calculi or hydronephrosis. Vascular: There is scattered aortic atherosclerotic calcification without aneurysm. Nodes: There is increased number of small mesenteric nodes in the left abdomen measuring up to 9 mm in short axis with surrounding mesenteric stranding. 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 There is no retroperitoneal lymphadenopathy. Bowel: No evidence of intestinal obstruction or inflammation. Appendix is not seen. There is no pericolonic inflammation. Diverticulum noted in the proximal sigmoid colon. Ascites/fluid collections: No ascites or fluid collections. Genitourinary: There has been hysterectomy. Bladder is unremarkable. Bones/soft tissues: Visualized osseous structures are intact. No suspicious osseous lesion identified. 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 2.No evidence of diverticulitis. 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
== END 2020-02-21 21:50 | disposition home or self-care (01) ==
LOC: ER 21:34
DX: R10.9 Unspecified abdominal pain (principal)
CPT/HCPCS: 99282

== ENCOUNTER → 2020-02-22 | Day surgery (SDC) | payer OTHER ==
[~2020-02-22] MED LIST: FENTANYL CITRATE/PF 100MCG/2 ML INJ ONE; GLUCAGON FOR INJ 1 MG VIAL ONE; HYOSCYAMINE 0.125 MG TAB ONE; LIDOCAINE HCL 2% LOCAL INJ 5 ML SDV VIAL INJ ONE; MIDAZOLAM HCL 2 MG/2 ML VIAL ONE; PROPOFOL IV EMULSION 10 MG/ML 20 ML VIAL ONE
--- NOTE | 2020-02-22 07:15 | NUR ---
SPIRITUAL CARE - Pre-Surgery Assessment: Pt in bed. Pt reported supportive attention from family and friends. Intervention: Manager Transfusion provided pastoral presence, hospitality, and sympathetic listening. Acquainted pt with availability of plastic molding operator while hospitalized. Outcome: Pt expressed appreciation for visit. No need for follow up indicated at this time. LAURO [facility] Department O: [phone]
[2020-02-22 09:40] VITALS: BP 119/77
--- NOTE | 2020-02-22 09:52 | Operative Report ---
DATE OF PROCEDURE: 02/22/2020 SURGEON: Eric Arboleda MD PROCEDURE: Colonoscopy with polypectomy. INDICATIONS FOR COLONOSCOPY: Colorectal cancer screening. MEDICATIONS: The patient was done under MAC, please see anesthesiologist's note. PROCEDURE IN DETAIL: With the patient in the left lateral decubitus position, the flexible fiberoptic Olympus colonoscope was inserted into the rectum with ease and advanced all the way to the cecum. It was then withdrawn slowly. Mucosa overlying the cecum appeared to be within normal limits. A minute polyp was noted in the distal ascending colon and that was removed per cold biopsy forceps. Transverse, descending, sigmoid, and rectum appeared to be within normal limits. The scope was then retroflexed into the distal rectum and small internal hemorrhoids were noted, none of which was actively bleeding. The scope was then straightened out, it was subsequently withdrawn, and the patient tolerated the procedure well. IMPRESSION: 1. Polyp, ascending colon, minute, cold biopsied. 2. Internal hemorrhoids, none actively bleeding. PLAN: Follow up histology. Initiate high-fiber, low-fat diet. Initiate high-fiber supplement. The patient might benefit from a followup colonoscopy in 5 years. Eric Arboleda MD [facility] [place] /[id number] cc: Mile Oconnell MD
== END | disposition home or self-care (01) ==
LOC: OR 06:01
PROVIDERS: ATTEND Internal Medicine Gastroenterology
DX: Z12.11 Encounter for screening for malignant neoplasm of colon (principal); K63.5 Polyp of colon; K64.8 Other hemorrhoids; R73.03 Prediabetes; F41.9 Anxiety disorder, unspecified; Z01.812 Encounter for preprocedural laboratory examination; Z11.59 Encounter for screening for other viral diseases; Z86.19 Personal history of other infectious and parasitic diseases
CPT/HCPCS: 45380; J1610; J2001; J2704; U0002; 45378; 45384; J2250; J3010